=== PATIENT | male | born 1950 | race Caucasian/White ===

== ENCOUNTER 2016-06-12 01:35 | Inpatient (IN) | payer MEDICARE, BC ==
[~2016-06-12] VITALS: Ht 188 cm; Wt 135.9 kg
[2016-06-12] VITALS (22 sets, daily range): BP systolic 90–141; BP diastolic 50–85; PULSE 80–117; RESP 18–28; TEMP 97.6–99.4; O2SAT 93–100
[~2016-06-12 01:35] MED LIST: ALBU6.7H INH; FOLI1TAB4 PO; IPRASOL INH; METR-1 PO; PROT40TA PO; THERTAB15 PO; VANC500I3 PO; VITA100T2 PO; ZOFR4TAB3 SL
[2016-06-12] MEDS ORDERED: PANTOPRAZOLE INJ 80 MG in SODIUM CHLORIDE 0.9% INJ 35 ML IV ONE (01:45)
[2016-06-12] MEDS ORDERED: SODIUM CHLORIDE 0.9% FLUSH 5 ML FLUSH IVF PRN (01:45)
[2016-06-12 02:04] LABS: BASOPHIL # 0.1 TH/MM3 (0-0.2); BASOPHIL % 0.8 % (0.0-2.0); EOSINOPHIL # 0.1 TH/MM3 (0-0.4); EOSINOPHIL % 0.7 % (0.0-4.0); LYMPH % 19.2 % (9.0-44.0); LYMPHOCYTE # 1.6 TH/MM3 (1.0-4.8); MEAN CELL VOLUME 81.1 FL (80.0-100.0); MEAN CORPUSCULAR HEMOGLOBIN 26.1 PG (27.0-34.0); MEAN CORPUSCULAR HGB CONC 32.2 % (32.0-36.0); MONO % 7.5 % (0.0-8.0); NEUT % 71.8 % (16.0-70.0); PLATELET COUNT 250 TH/MM3 (150-450); RED BLOOD COUNT 2.57 MIL/MM3 (4.50-5.90); RED CELL DISTRIBUTION WIDTH 18.5 % (11.6-17.2); WHITE BLOOD COUNT 8.3 TH/MM3 (4.0-11.0)
[2016-06-12 02:05] LABS: HEMO FLAGS AUTO DIFF
[2016-06-12 02:08] LABS: HEMATOCRIT 20.8 % (39.0-51.0)
[2016-06-12] MEDS: PANTOPRAZOLE INJ 80 MG in SODIUM CHLORIDE 0.9% INJ 100 ML IV SCH ×3 (02:13→23:59)
[2016-06-12] MEDS ORDERED: SODIUM CHLOR 0.9% 250 ML INJ 250 ML IV ONE ×2 (02:15→21:30)
[2016-06-12] MEDS ORDERED: cefTRIAXone INJ 1,000 MG in SODIUM CHLORIDE 0.9% INJ 100 ML IV ONE (02:15)
[2016-06-12 02:16] LABS: ANION GAP 10 MEQ/L (5-15); AST (GOT) 48 U/L (15-37); BLOOD UREA NITROGEN 28 MG/DL (7-18); CHLORIDE 107 MEQ/L (98-107); GLOMERULAR FILTRATION RATE 99 ML/MIN (>89); POTASSIUM 3.8 MEQ/L (3.5-5.1); SODIUM (NA) 141 MEQ/L (136-145)
[2016-06-12 02:19] LABS: ALKALINE PHOSPHATASE 77 U/L (45-117); ALT (GPT) 41 U/L (12-78); TOTAL BILIRUBIN ADULT 0.3 MG/DL (0.2-1.0)
[2016-06-12 02:35] LABS: APTT (PATIENT) 19.1 SEC (24.3-30.1); PROTHROMBIN TIME - PATIENT 11.4 SEC (9.8-11.6)
[2016-06-12 02:41] LABS: SCAN/DIFF AUTO DIFF CONFIRMED
--- NOTE | 2016-06-12 04:09 | PD ---
HPI Chief Complaint: Dizziness Time Seen by Provider: 01:44 Travel History International Travel<30 days: No Contact w/Intl Traveler<30days: No Traveled to known affect area: No History of Present Illness HPI The patient is 65 years old. He arrives by EMS. His found him minimally responsive at home. The patient does not recall the events of the evening. Upon arrival to the ER the heart rate was about 115-120 and the blood pressure was about 90/50. The patient answered some questions and is able to state that for the past 2 or 3 days he has been very tired, sleeping nearly all day and all night. Severe dyspnea on exertion is reported. Dyspnea rest is reported as well. Patient reports a history of cirrhosis as well as gastric varices. He has had a peritoneal bleed once previously. 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 He has had no chest pain. No fever has occurred. He has had no vomiting. He reports some constipation lately. Positive flatus reported. The patient quit drinking one month prior. He had been drinking half a liter of liquor daily. PFSH Past Medical History Cancer: Yes (SKIN) Cardiovascular Problems: No COPD: Yes Diabetes: No Glaucoma: No Hepatitis: No Hiatal Hernia: No Hypertension: Yes Medical other: Yes (MUSCLE CRAMPS) Respiratory: Yes (ASBESTOS) Immunizations Current: No Thyroid Disease: No Tetanus Vaccination: < 5 Years Past Surgical History Genitourinary Surgery: Yes (vasectomy) Pacemaker: No Other Surgery: Yes (gastric varacies) Social History Alcohol Use: Yes (quit 1 month ago, previously drank 0.5 liters/day) Tobacco Use: No Substance Use: No Allergies-Medications (Allergen,Severity, Reaction): Coded Allergies: No Known Allergies (Unverified , 06/12/16) Reported Meds & Prescriptions Reported Meds & Active Scripts Active Zofran Odt (Ondansetron Odt) 4 Mg Tab 4 Mg SL Q6HR PRN Flagyl (Metronidazole) 500 Mg Tab 500 Mg PO QID Protonix (Pantoprazole Sodium) 40 Mg Tab 40 Mg PO DAILY Thera/Beta-Carotene (Multiple Vitamin) 1 Tab Tab 1 Tab PO DAILY Folate (Folic Acid) 1 Mg Tab 1 Mg PO DAILY Flagyl (Metronidazole) 500 Mg Tab 500 Mg PO Q8HR Vitamin B-1 (Thiamine HCl) 100 Mg Tab 100 Mg PO DAILY Vancomycin Inj (Vancomycin HCl) 500 Mg Inj 125 Mg PO QID Protonix (Pantoprazole Sodium) 40 Mg Tab 40 Mg PO DAILY Reported Duoneb (Ipratropium-Albuterol Neb) 0.5-2.5 Mg/3 Ml Neb 1 Nebule INH Q6HR NEB Proventil Hfa 6.7 GM Inh (Albuterol Sulfate) 90 Mcg/Act Aer 2 Puff INH Q6H PRN Review of Systems Except as stated in HPI: all other systems reviewed are Neg General / Constitutional: No: Fever, Chills Cardiovascular: Positive: Chest Pain or Discomfort Physical Exam Narrative GENERAL: 65-year-old male pleasant quite pale SKIN: Warm. Quite pale. RECTAL: No internal or external hemorrhoid. Black guaiac positive stool present. No mass appreciable. HEAD: Atraumatic. Normocephalic. EYES: Pupils equal and round. No scleral icterus. No injection or drainage. ENT: No nasal bleeding or discharge. Mucous membranes pink and moist. NECK: Trachea midline. No JVD. CARDIOVASCULAR: Regular rate and rhythm. No murmur appreciated. RESPIRATORY: No accessory muscle use. Clear to auscultation. Breath sounds equal bilaterally. GASTROINTESTINAL: Abdomen soft, non-tender, nondistended. Hepatic and splenic margins not palpable. MUSCULOSKELETAL: No obvious deformities. No clubbing. No cyanosis. No edema. NEUROLOGICAL: Awake and alert. No obvious cranial nerve deficits. Motor grossly within normal limits. Normal speech. PSYCHIATRIC: Appropriate mood and affect; insight and judgment normal. Data Data Last Documented VS Vital Signs Date Time Temp Pulse Resp B/P Pulse Ox O2 Delivery O2 Flow Rate FiO2 06/12/16 03:45 88 18 130/65 100 Room Air 06/12/16 03:22 2 06/12/16 03:09 97.9 Orders Complete Blood Count With Diff (06/12/16 01:45) Comprehensive Metabolic Panel (06/12/16 01:45) Lipase (06/12/16 01:45) Prothrombin Time / Inr (Pt) (06/12/16 01:45) Act Partial Throm Time (Ptt) (06/12/16 01:45) Type And Screen (06/12/16 01:45) Ecg Monitoring (06/12/16 01:45) Iv Access Insert/Monitor (06/12/16 01:45) Oximetry (06/12/16 01:45) Sodium Chloride 0.9% Flush (Ns Flush) (06/12/16 01:45) Pantoprazole Inj (Protonix Inj) (06/12/16 01:45) Pantoprazole Inj (Protonix Inj) (06/12/16 01:45) Lactic Acid (06/12/16 01:48) Ammonia (06/12/16 01:48) Red Blood Cells (Rbc) (06/12/16 02:03) Blood Product Administration .UPON TRANSFUSION (06/12/16 02:03) Sodium Chlor 0.9% 250 Ml Inj (Ns 250 Ml (06/12/16 02:15) Ceftriaxone Inj (Rocephin Inj) (06/12/16 02:15) Labs Laboratory Tests Test 06/12/16 06/12/16 06/12/16 01:50 02:03 02:20 White Blood Count 8.3 TH/MM3 Red Blood Count 2.57 MIL/MM3 Hemoglobin 6.7 GM/DL Hematocrit 20.8 % Mean Corpuscular Volume 81.1 FL Mean Corpuscular Hemoglobin 26.1 PG Mean Corpuscular Hemoglobin 32.2 % Concent Red Cell Distribution Width 18.5 % Platelet Count 250 TH/MM3 Mean Platelet Volume 9.2 FL Neutrophils (%) (Auto) 71.8 % Lymphocytes (%) (Auto) 19.2 % Monocytes (%) (Auto) 7.5 % Eosinophils (%) (Auto) 0.7 % Basophils (%) (Auto) 0.8 % Neutrophils # (Auto) 6.0 TH/MM3 Lymphocytes # (Auto) 1.6 TH/MM3 Monocytes # (Auto) 0.6 TH/MM3 Eosinophils # (Auto) 0.1 TH/MM3 Basophils # (Auto) 0.1 TH/MM3 CBC Comment AUTO DIFF Differential Comment AUTO DIFF CONFIRMED Prothrombin Time 11.4 SEC Prothromb Time International 1.0 RATIO Ratio Activated Partial 19.1 SEC Thromboplast Time Sodium Level 141 MEQ/L Potassium Level 3.8 MEQ/L Chloride Level 107 MEQ/L Carbon Dioxide Level 24.0 MEQ/L Anion Gap 10 MEQ/L Blood Urea Nitrogen 28 MG/DL Creatinine 0.79 MG/DL Estimat Glomerular Filtration 99 ML/MIN Rate Random Glucose 164 MG/DL Lactic Acid Level 3.1 mmol/L Calcium Level 8.3 MG/DL Total Bilirubin 0.3 MG/DL Aspartate Amino Transf 48 U/L (AST/SGOT) Alanine Aminotransferase 41 U/L (ALT/SGPT) Alkaline Phosphatase 77 U/L Ammonia 51 MCMOL/L Total Protein 6.9 GM/DL Albumin 2.5 GM/DL Lipase 254 U/L Blood Type A POSITIVE Antibody Screen NEGATIVE Crossmatch Leukocyte-Reduced Leukocyte-Reduced Red Blood Red Blood Cells Cells Blood Bank Comment MDM Medical Decision Making Medical Screen Exam Complete: Yes Emergency Medical Condition: Yes Medical Record Reviewed: Yes Differential Diagnosis Upper GI bleed, lower GI bleed, anemia Narrative Course CBC & BMP Diagram 06/12/16 01:50 The hemoglobin from 6 weeks prior was 10.6 AST is 48 Ammonia 51 Albumin 2.5 Protonix bolus and drip initiated. Rocephin initiated. 2 units packed cells transfused. At 4:05 AM, about 2 hours into the patient's ER stay the blood pressure improved to 137/65 and the pulse has remained in the mid to high 90s. The patient will be admitted for endoscopy serial CBCs. Discussed with Dr Watkins. Critical Care Narrative Aggregate critical care time was 45 minutes. Time to perform other separately billable procedures was not included in the critical care time. My time did not include minutes spent treating any other patients simultaneously or on activities that did not directly contribute to the patient's treatment. The services I provided to this patient were to treat and/or prevent clinically significant deterioration that could result in: Hemorrhagic shock, cardiopulmonary arrest, septic shock, multiorgan dysfunction I provided critical care services requiring my management, as noted below: Chart data review, documentation time, medication orders and management, vital sign assessments/reviewing monitor data, ordering and reviewing lab tests, ordering and interpreting/reviewing x-rays and diagnostic studies, care of the patient and discussion of the patient with the admitting physicians. Diagnosis Primary Impression: Anemia Qualified Code: D64.9 - Anemia, unspecified type Additional Impressions: GI bleed Qualified Code: K92.1 - Gastrointestinal hemorrhage with melena Fatigue Qualified Code: R53.83 - Fatigue, unspecified type Hyperammonemia Admitting Information Admitting Physician Requests: Miguelito Crawley MD Jun 12, 2016 04:09
[2016-06-12] MEDS ORDERED: ONDANSETRON HCL 4 MG/2 ML VIAL IVP PRN (04:30)
[2016-06-12] MEDS ORDERED: CHLORHEXIDINE GLUCONATE 2 % 1 PACK (2 CLOTHS) TOP PRN (04:30)
[2016-06-12] MEDS ORDERED: MISCELLANEOUS NURSING INFORMATION XX SCH (04:30)
[2016-06-12] MEDS ORDERED: SODIUM CHLORIDE 0.9% FLUSH 5 ML FLUSH FLUSH PRN (04:30)
[2016-06-12] MEDS ORDERED: ACETAMINOPHEN 325 MG TAB PO PRN (04:30)
[2016-06-12] MEDS ORDERED: BISACODYL 10 MG SUPP PR PRN (04:30)
[2016-06-12] MEDS: SODIUM CHLOR 0.9% 1000 ML INJ 1,000 ML IV SCH ×3 (05:15→23:59)
--- NOTE | 2016-06-12 05:39 | HHI.HP ---
[facility] Admission Diagnosis UGIB, Anemia, Hyperammonemia, Hx Gastric Varices Diagnoses: (1) GI bleed Diagnosis: Principal (2) Alcohol abuse Diagnosis: Principal (3) Gastric varices Diagnosis: Principal (4) Anemia Diagnosis: Principal (5) COPD (chronic obstructive pulmonary disease) Diagnosis: Principal Travel History International Travel<30 Days: No Contact w/Intl Traveler <30 Da: No Traveled to Known Affected Are: No History of Present Illness This is a 65-year-old male with a PMH of HTN, CHF (Echo 04/12/16 w/ EF 45%), COPD , Alcohol Abuse, h/o GI Bleed w/ Gastric Varices and Cirrhosis who was brought to the ER by EMS secondary to altered mental status. Pt poor historian, but states he's had episodes of dizziness/lightheadedness and nausea x3 days w/ decreased PO intake. No fever or chills. H/o Alcohol Abuse w/ GI Bleed from Gastric Varices on previous admission 04/11-04/26/16, s/p EGD w/ epi injection, not amenable to endoscopic therapy per GI, recommendation for transfer to tertiary center for TIPS at that time, however per records pt declined. Denies hematemesis. States he quit drinking approx 1 month ago. On arrival, BP 96/51 , HR 108, O2 sat 97% on RA, Temp 99.1. WBC normal. Hgb 6.7, previously 10.6 on 05/01/16. Chemistry essentially unremarkable. Lactic Acid 3.1. INR 1.0. 2u pRBC ordered in ER for transfusion. S/p IVF w/ BP improved to 130/65, HR 88. + Hemoccult positive. Review of Systems Other ROS: 14 point review of systems otherwise negative. Past Family Social History Past Medical History PMH: HTN, COPD, Alcohol Abuse, h/o GI Bleed w/ Gastric Varices and Cirrhosis Past Surgical History PAST SURGICAL HISTORY: Vasectomy Allergies: Coded Allergies: No Known Allergies (Unverified , 06/12/16) Family History PAST FAMILY HISTORY: Reviewed. No h/o DM or CAD Social History PAST SOCIAL HISTORY: H/o Alcohol Abuse, quit 1 month ago. Negative for tobacco or drugs. Physical Exam Vital Signs Vital Signs Date Time Temp Pulse Resp B/P Pulse Ox O2 Delivery O2 Flow Rate FiO2 06/12/16 03:45 88 18 130/65 100 Room Air 06/12/16 03:36 86 18 117/69 99 Room Air 06/12/16 03:22 91 18 118/61 100 Nasal Cannula 2 06/12/16 03:09 97.9 92 18 121/58 98 Nasal Cannula 2 06/12/16 03:07 97.6 94 18 106/65 98 Nasal Cannula 2 06/12/16 02:30 106 20 95/50 100 Nasal Cannula 2 06/12/16 02:24 98.7 102 18 96/51 94 Room Air 06/12/16 02:10 108 18 96/51 97 Room Air 06/12/16 01:41 100 20 96 Room Air 06/12/16 01:37 99.1 114 18 96 Physical Exam PE: GENERAL: Middle-aged male in no acute distress, +pallor HEENT: PERRLA, EOMI. No scleral icterus or conjunctival pallor. No lid lag or facial droop. CARDIOVASCULAR: Regular rate and rhythm. No obvious murmurs to auscultation. No chest tenderness to palpation. RESPIRATORY: No obvious rhonchi or wheezing. Clear to auscultation. Breath sounds equal bilaterally. GASTROINTESTINAL: Abdomen soft, non-tender, nondistended. BS normal. MUSCULOSKELETAL: Extremities without clubbing, cyanosis, or edema. No obvious deformities. NEUROLOGICAL: Awake, alert. No focal neurologic deficits. Moving both upper and lower extremities spontaneously. Laboratory Laboratory Tests Test 06/12/16 06/12/16 06/12/16 01:50 02:03 02:20 White Blood Count 8.3 Red Blood Count 2.57 Hemoglobin 6.7 Hematocrit 20.8 Mean Corpuscular Volume 81.1 Mean Corpuscular Hemoglobin 26.1 Mean Corpuscular Hemoglobin 32.2 Concent Red Cell Distribution Width 18.5 Platelet Count 250 Mean Platelet Volume 9.2 Neutrophils (%) (Auto) 71.8 Lymphocytes (%) (Auto) 19.2 Monocytes (%) (Auto) 7.5 Eosinophils (%) (Auto) 0.7 Basophils (%) (Auto) 0.8 Neutrophils # (Auto) 6.0 Lymphocytes # (Auto) 1.6 Monocytes # (Auto) 0.6 Eosinophils # (Auto) 0.1 Basophils # (Auto) 0.1 CBC Comment AUTO DIFF Differential Comment AUTO DIFF CONFIRMED Prothrombin Time 11.4 Prothromb Time International 1.0 Ratio Activated Partial 19.1 Thromboplast Time Sodium Level 141 Potassium Level 3.8 Chloride Level 107 Carbon Dioxide Level 24.0 Anion Gap 10 Blood Urea Nitrogen 28 Creatinine 0.79 Estimat Glomerular Filtration 99 Rate Random Glucose 164 Lactic Acid Level 3.1 Calcium Level 8.3 Total Bilirubin 0.3 Aspartate Amino Transf 48 (AST/SGOT) Alanine Aminotransferase 41 (ALT/SGPT) Alkaline Phosphatase 77 Ammonia 51 Total Protein 6.9 Albumin 2.5 Lipase 254 Blood Type A POSITIVE Antibody Screen NEGATIVE Crossmatch Leukocyte-Reduced Leukocyte-Reduced Red Blood Red Blood Cells Cells Blood Bank Comment Result Diagram: 06/12/1614906/12/16149 Assessment and Plan Problem List: (1) GI bleed ICD Code: K92.2 Status: Acute (2) Gastric varices ICD Code: I86.4 Status: Acute (3) Anemia ICD Code: D64.9 Status: Acute (4) Alcohol abuse ICD Code: F10.10 Status: Acute (5) COPD (chronic obstructive pulmonary disease) ICD Code: J44.9 Status: Chronic Assessment and Plan A/P: 1. GI Bleed: h/o GI Bleed secondary to Gastric Varices, s/p EGD w/ epi injection 04/2016. Hgb 6.7. +Hemoccult. 2u pRBC ordered in ER, pending transfusion. Check Hgb/Hct q6h. On Protonix gtt. GI Consult. Admit to ICU in light of Variceal Bleed and borderline hypotension, now resolved. 2. Gastric Varices: Cirrhosis secondary to Alcohol Abuse, recommendation for transfer to tertiary center for TIPS on previous admission, however pt declined at that time. Will need re-eval. 3. Alcohol Abuse: h/o heavy alcohol abuse 1/2 L Vodka daily, quit 1 month ago. 4. Anemia: secondary to GI Bleed. Check Hgb/Hct following transfusion. 5. COPD: Chronic Respiratory Failure. Stable. DuoNeb prn. 6. DVT Prophylaxis: Pharmacologic contraindication secondary to GI Bleed. 7. Social work for d/c planning as needed. 8. Case discussed w/ ER physician at length. Physician Certification 2 Midnight Certification Type: Admission for Inpatient Services Order for Inpatient Services The services are ordered in accordance with Medicare regulations or non- Medicare payer requirements, as applicable. In the case of services not specified as inpatient-only, they are appropriately provided as inpatient services in accordance with the 2-midnight benchmark. Estimated LOS (days): 2 days is the estimated time the patient will need to remain in the hospital, assuming treatment plan goals are met and no additional complications. Post-Hospital Plan: Not yet determined Problem Qualifiers (1) GI bleed: Qualified Code: K92.1 - Gastrointestinal hemorrhage with melena (2) Anemia: Qualified Code: D64.9 - Anemia, unspecified type Elke Watkins MD Jun 12, 2016 05:39
[2016-06-12] MEDS: SODIUM CHLORIDE 0.9% FLUSH 5 ML FLUSH FLUSH SCH ×2 (09:00→21:00)
[2016-06-12 09:18] LABS: HEMATOCRIT 23.1 % (39.0-51.0); REVIEW FLAG FINAL
[2016-06-12] MEDS ORDERED: METH40TA PO (09:23)
[2016-06-12] MEDS: metroNIDAZOLE 500 MG INJ 100 ML IV SCH ×2 (09:23→17:14)
[2016-06-12] MEDS: CIPROFLOXACIN 400 MG PREMIX 200 ML IV SCH ×2 (10:42→21:42)
--- NOTE | 2016-06-12 12:00 | HHI.PR ---
Addendum to Inpatient Note Additional Information Patient seen/examined. Currently doing well, hemodynamically stable. We will wait for GI recommendations. Chandler See DO Jun 12, 2016 12:00 pm
--- NOTE | 2016-06-12 12:59 | PD.CONS ---
GI Consult GI Consult See GI consult dictated today also ([id number]) ASSESSMENT/PLAN: 1. GI bleeding (melena)--stable now. Per pt last dark BM was 3-4 days ago 2. Gastric Varices-was on a beta-beryl as an outpt 3. Cirrhosis and portal HTN and portal gastropathy 4. Abnormal CT (? liver lesion) and mildly elevated AFP (6.4). [facility]) 5. Anemia 6. Hx of C. Diff PLAN: 1. Octreotide 2. Transfuse to Hgb of 7-8 (too high may promote more bleeding) 3. consider transfer to a tertiary center for TIPs It was a pleasure seeing Parminder Lucero Thank you for this consult. Entered by: Rob Marsh MD Jun 12, 2016 12:59
[2016-06-12] MEDS ORDERED: OCTREOTIDE INJ 50 MCG/ML AMP IVP STA (13:21)
[2016-06-12] MEDS: OCTREOTIDE INJ 500 MCG in SODIUM CHLORID 0.9% 500 ML INJ 499.5 ML IV SCH (14:32)
[2016-06-12] MEDS ORDERED: CHLORHEXIDINE GLUCONATE 2 % 1 PACK (2 CLOTHS)(extra cloths) TOP PRN (15:00)
[2016-06-12 15:20] LABS: HEMATOCRIT 25.3 % (39.0-51.0); REVIEW FLAG FINAL
[2016-06-12] MEDS: RESP: ALBUTEROL 2.5 MG/IPRATROPIUM 0.5 MG NEB (PRN) NEB (16:29)
--- NOTE | 2016-06-12 17:53 | EKG ---
Date Performed: 06/12/2016 Time Performed: 01:52:15 PTAGE: 65 years EKG: SINUS TACHYCARDIA PROBABLE INFERIOR MYOCARDIAL INFARCTION MODERATE T-WAVE ABNORMALITY, CONS IDER ANTERIOR ISCHEMIA. When compared to previous tracing, the patient appears now Tachycardic, and h as ST depression concerning for ischemia. ABNORMAL ECG PREVIOUS TRACING : 04/18/2016 22.27 DOCTOR: Sabrina Salcedo Interpretating Date/Time 06/12/2016 17:50:55
[2016-06-12 21:11] LABS: REVIEW FLAG FINAL
[2016-06-12 21:14] LABS: HEMATOCRIT 19.9 % (39.0-51.0)
[2016-06-13] VITALS (14 sets, daily range): BP systolic 108–125; BP diastolic 55–67; PULSE 72–126; RESP 14–23; TEMP 98–98.6; O2SAT 95–98
[2016-06-13] MEDS: metroNIDAZOLE 500 MG INJ 100 ML IV SCH ×3 (01:28→16:38)
[2016-06-13] MEDS: CHLORHEXIDINE GLUCONATE 2 % 1 PACK (2 CLOTHS)(taper/protocol) TOP SCH (04:00)
[2016-06-13] MEDS: CHLORHEXIDINE GLUCONATE 2 % 1 PACK (2 CLOTHS) TOP SCH (04:00)
[2016-06-13 06:45] LABS: AUTOMATED NEUTROPHIL # 3.4 TH/MM3 (1.8-7.7); BASOPHIL # 0.1 TH/MM3 (0-0.2); BASOPHIL % 0.9 % (0.0-2.0); EOSINOPHIL # 0.1 TH/MM3 (0-0.4); EOSINOPHIL % 1.8 % (0.0-4.0); LYMPH % 31.9 % (9.0-44.0); MEAN CELL VOLUME 82.3 FL (80.0-100.0); MEAN CORPUSCULAR HEMOGLOBIN 27.4 PG (27.0-34.0); MEAN CORPUSCULAR HGB CONC 33.2 % (32.0-36.0); MONO % 11.5 % (0.0-8.0); NEUT % 53.9 % (16.0-70.0); PLATELET COUNT 166 TH/MM3 (150-450); RED BLOOD COUNT 2.48 MIL/MM3 (4.50-5.90); RED CELL DISTRIBUTION WIDTH 17.4 % (11.6-17.2); WHITE BLOOD COUNT 6.4 TH/MM3 (4.0-11.0)
[2016-06-13 07:05] LABS: ALKALINE PHOSPHATASE 58 U/L (45-117); ALT (GPT) 31 U/L (12-78); ANION GAP 9 MEQ/L (5-15); AST (GOT) 34 U/L (15-37); BICARBONATE 23.2 MEQ/L (21.0-32.0); BLOOD UREA NITROGEN 25 MG/DL (7-18); CHLORIDE 107 MEQ/L (98-107); GLOMERULAR FILTRATION RATE 99 ML/MIN (>89); POTASSIUM 3.7 MEQ/L (3.5-5.1); SODIUM (NA) 139 MEQ/L (136-145); TOTAL BILIRUBIN ADULT 1.1 MG/DL (0.2-1.0)
[2016-06-13 07:17] LABS: HEMO FLAGS DIFF FINAL
[2016-06-13 07:18] LABS: HEMATOCRIT 20.4 % (39.0-51.0)
[2016-06-13] MEDS: OCTREOTIDE INJ 500 MCG in SODIUM CHLORID 0.9% 500 ML INJ 499.5 ML IV SCH (08:26)
[2016-06-13] MEDS: PANTOPRAZOLE INJ 80 MG in SODIUM CHLORIDE 0.9% INJ 100 ML IV SCH ×2 (08:27→16:38)
[2016-06-13] MEDS: CIPROFLOXACIN 400 MG PREMIX 200 ML IV SCH ×2 (08:27→22:31)
[2016-06-13] MEDS: SODIUM CHLORIDE 0.9% FLUSH 5 ML FLUSH FLUSH SCH ×2 (08:27→20:13)
[2016-06-13] MEDS: SODIUM CHLOR 0.9% 1000 ML INJ 1,000 ML IV SCH ×2 (08:32→20:14)
[2016-06-13] MEDS: RESP: ALBUTEROL 2.5 MG/IPRATROPIUM 0.5 MG NEB (PRN) NEB ×2 (08:37→20:18)
[2016-06-13 08:58] LABS: HEMATOCRIT 23.4 % (39.0-51.0); REVIEW FLAG FINAL
--- NOTE | 2016-06-13 09:52 | MB ---
cc: DANDRE PATINO M.D., CAMILLE MD PASRICHA, SUNIL P. M.D. DATE OF CONSULTATION: 06/12/2016 DATE OF : 1950 REASON FOR CONSULTATION I was asked to see the patient at the request of Dr. Watkins for evaluation of GI bleeding and cirrhosis of the liver and gastric varices. HISTORY OF PRESENT ILLNESS The patient is a pleasant 65-year-old white male who I have known from past admission. He was followed by Dr. Patino in the office and the last time he was here he presented with GI bleeding. In the workup for GI bleeding enteroscopy was attempted by my partner Dr. Cabello. During the exam he noticed some blood in the fundus and washed this area and the patient was bleeding from the gastric varices. The varices were not amendable to banding and he did inject the varix with epinephrine and by chance the bleeding did cease, although it may have been the fact that a large clot developed and the clot may have sealed the bleeding. Unfortunately, his gastric varices are not amenable to any kind of treatment in our community. We talked to him about a TIPS procedure, however, our radiologist felt uncomfortable doing him and we had the patient ready to be transferred to a tertiary care center ([facility]) to get a TIPS procedure done. He apparently declined this and wanted another opinion. The patient was seen by Dr. Patino in the office and they talked about TIPS there as well as possible liver transplant. It was also noted alpha fetoprotein was slightly elevated at 6.4 and a CAT scan may have showed some liver lesions and MRI was done at the [facility] and I did scan our records in the office and we do not have those results as of yet. At this time apparently the patient's noticed at home that he was nonresponsive. He was not able to recall events and when he came to the emergency room his hemoglobin was 6.7. The patient states that he has had dark brown/black stools about three or four days ago and that is the last time he had stools and they have been more brown recently. There has been no hematochezia. No nausea, vomiting, dysphagia, early satiety. No fever or chills. He has not been taking any type of aspirin or NSAIDs. He stopped drinking about a month ago he states. PAST MEDICAL HISTORY 1. Cirrhosis of liver. 2. Gastric varices. 3. Portal hypertension. 4. Previous GI bleeding. 5. Anemia. 6. Skin cancer. 7. COPD. 8. Hypertension. 9. Muscle cramps. 10. Possible asbestos exposure. 11. History of C. Difficile. 12. Abnormal CAT scan. 13. Mildly elevated alpha fetoprotein 6.4. PAST SURGICAL HISTORY Includes vasectomy, upper endoscopy and colonoscopy. SOCIAL HISTORY He was drinking almost 1/2 liter of hard liquor a day. He stopped about a month ago (end of March). He does not smoke. ALLERGIES No known drug allergies. MEDICATIONS 1. He is taking Zofran. 2. Protonix. 3. Folic acid. 4. He is also taking a beta-beryl (Naldol)). 5. He was taking Flagyl as well as Vancomycin for C. Difficile but he is off it now. 6. He has also been on lactulose and Xifaxan. MEDICATIONS In the hospital at this time include: 1. Cipro. 2. Flagyl. 3. Albuterol. 4. Zofran. 5. Dulcolax. 6. Tylenol. 7. Morphine. 8. Roxicodone. 9. Pantoprazole. REVIEW OF SYSTEMS No weight loss or fever or chills. CARDIOPULMONARY: There is no palpitation, wheezing, shortness of breath. There might have been some chest pain at one time, according to the ER records but denies it to me. GASTROINTESTINAL: Please see above. He denies any abdominal pain. PHYSICAL EXAMINATION GENERAL: Reveals an overweight white male, resting comfortably at this time, pale, appears to be in no acute GI distress. HEENT: His pupils are equal, round and reactive to light. There is no scleral icterus. Oropharynx clear, has dental caries. No tongue deviation or candidal lesion. Hearing was intact. NECK: The neck is supple. No thyromegaly or lymphadenopathy. LUNGS: Clear to auscultation and percussion. HEART: Regular rate and rhythm. No gross murmurs are heard. ABDOMEN: Protuberant. There is no organomegaly. No ascites or hernias. Bowel sounds x4 quadrants. Nontender. NEUROLOGIC: He is alert and oriented x 3. No gross neurologic deficits. There is no asterixis. SKIN: Skin warm and moist. DATABASE Labs reveal an admission hemoglobin was 6.7, hematocrit of 20.8, MCV 81.1, white blood cell count 8300, platelet count of 250,000. With blood hemoglobin is now 7.7. Prothrombin time 1.4, INR 1.0, PTT 19.1. Chemistry revealed a lactic acid initially elevated at 3.1, now it is 1.1, ammonia 51 elevated, lipase 254 is normal, albumin low 2.5, total protein 6.9 was normal. Potassium 3.6, BUN 28 elevated, creatinine 0.79, sodium 164, total bilirubin 0.3, SGOT of 48, SGPT 41, alkaline phosphatase 77. Sodium 141. IMPRESSION 1. GI bleeding (melena). He is stable now. Per the patient last dark bowel movement was about 3-4 days ago. He understands the bleeding more than likely came from portal hypertension/gastric varices. He has been on PPI so I think ulcer is lower in differential. He has not been taking aspirin or NSAIDs. 2. Gastric varices - the patient was on beta beryl as an outpatient. The fact that he came in with GI bleeding it means the beta-beryl did not help. 3. Cirrhosis of the liver as well as portal hypertension and portal gastropathy (the cirrhosis seen on CAT scan and reportedly gastropathy seen on previous upper endoscopy). 4. Abnormal CT scan (there is a possible liver lesion) and mildly elevated alpha fetoprotein (6.4). The patient had a MRI of the abdomen done at the [facility]. We do not have the results at this time. 5. Anemia - 6. History of C. Difficile. The patient was treated with Flagyl, Vancomycin and stools are formed at this time. RECOMMENDATIONS 1. We talked about an upper endoscopy, however, this is a low yield exam and he does have gastric varices and they are not amenable to endoscopic treatment in our community. Tertiary care centers may have ability to use special form of epoxy which can be injected into the varix and stop the bleeding. Unfortunately, we do not have it in our community. Banding is a possibility but they are not amenable to banding due to location and a band does not usually help gastric varices. Since we do not access these modalities for TIPS, please start the patient on octreotide to reduce portal pressures to prevent another GI bleed, until we decide appropriate treatment plan - see below. 2. Transfuse patient if hemoglobin between 7 and 8, please do not get the hemoglobin too high as this may increase portal pressures and promote rebleeding. 3. Consider transfer to tertiary center for TIPS procedure. This is not available at our institution, at least for this patient. 4. Further recommendations depending on how he does. MD ALEJANDRA Watkins/[place] /1:02 PM /9:39 AM MTDParth
--- NOTE | 2016-06-13 10:26 | HHI.GIFU ---
GI Follow-up Note Consult Follow-up Subjective: Patient laying in bed comfortably. Had black stools again. No N/V/ Abd pain Objective: PHYSICAL EXAMINATION: [id number] No fever HEENT: no jaundice. Throat is clear. NECK: Neck is supple, no JVD, no lymphadenopathy. CHEST: Chest is clear to auscultation and percussion. CARDIAC: Regular rate and rhythm with no murmur gallop or rubs. ABDOMEN: Soft, nondistended, nontender; no hepatosplenomegaly; bowel sounds are present in all four quadrants. [employer]ADDLE [employer]: alert and oriented times three. Available Data (labs, X- Rays, Procedues) : Hgb--7.0-6.8-7.9 ASSESSMENT/PLAN: 1. GI bleeding (melena)--had some melena again but hgb stable at 7.9 2. Gastric Varices-was on a beta-beryl as an outpt 3. Cirrhosis and portal HTN and portal gastropathy 4. Abnormal CT (? liver lesion) and mildly elevated AFP (6.4). [facility]) 5. Anemia 6. Hx of C. Diff PLAN: 1. Cont Octreotide drip 2. Transfuse to Hgb of 7-8 (too high may promote more bleeding) 3. consider transfer to a tertiary center for TIPs It was a pleasure seeing Parminder Lucero Thank you for this consult. Entered by: Rob Marsh MD Jun 13, 2016 10:26
--- NOTE | 2016-06-13 16:13 | HHI.PR ---
Subjective Remarks Follow-up for GI bleed due to gastric varices. Mr. Lucero is currently doing well. Denies any chest pain, shortness of breath, fever or chills. He had 3 bowel movements today that were melanotic. He is waiting to be transferred to [facility] for possible TIPS procedure. Objective Vitals Vital Signs Date Time Temp Pulse Resp B/P Pulse Ox O2 Delivery O2 Flow Rate FiO2 06/13/16 14:00 84 06/13/16 12:00 81 06/13/16 12:00 98.2 82 20 125/63 97 06/13/16 10:00 99 06/13/16 08:17 98 Nasal Cannula 2.00 06/13/16 08:00 98.0 97 20 108/55 98 06/13/16 08:00 100 06/13/16 06:00 93 06/13/16 04:00 99 06/13/16 04:00 98.3 99 23 109/59 96 06/13/16 02:00 95 06/13/16 00:45 98.6 85 18 109/58 95 06/13/16 00:00 85 06/13/16 00:00 98.3 85 14 115/64 98 06/12/16 22:00 102 06/12/16 20:07 97 Nasal Cannula 2.00 06/12/16 20:00 100 06/12/16 20:00 99.3 102 28 114/74 97 06/12/16 18:00 101 I/O 06/12/16 06/12/16 06/12/16 06/13/16 06/13/16 06/13/16 07:00 15:00 23:00 07:00 15:00 23:00 Intake Total 250 ml 2440 ml 1211 ml 2075 ml Output Total 120 ml 400 ml 1000 ml Balance 250 ml 2320 ml 811 ml 1075 ml Intake Oral 960 ml IV Total 2440 ml 911 ml 1115 ml Packed Cells 250 ml 300 ml Output Urine Total 120 ml 400 ml 1000 ml # Voids 1 # Bowel Movements 1 3 Result Diagram: 06/13/16 0830 06/13/16 0508 Objective Remarks GENERAL: Alert, oriented 3 SKIN: Warm and dry. HEAD: Normocephalic. EYES: No scleral icterus. No injection or drainage. NECK: Supple, trachea midline. No JVD or lymphadenopathy. CARDIOVASCULAR: Regular rate and rhythm without murmurs, gallops, or rubs. RESPIRATORY: Breath sounds equal bilaterally. No accessory muscle use. GASTROINTESTINAL: Abdomen soft, non-tender, nondistended. MUSCULOSKELETAL: No cyanosis, or edema. BACK: Nontender without obvious deformity. No CVA tenderness. Procedures None A/P Problem List: (1) GI bleed ICD Code: K92.2 Status: Acute (2) Gastric varices ICD Code: I86.4 Status: Acute (3) Anemia ICD Code: D64.9 Status: Acute (4) Alcohol abuse ICD Code: F10.10 Status: Acute (5) COPD (chronic obstructive pulmonary disease) ICD Code: J44.9 Status: Chronic Assessment and Plan Mr. Lucero is a 65-year-old male with a PMH of HTN, CHF (Echo 04/12/16 w/ EF 45%) , COPD, Alcohol Abuse, h/o GI Bleed w/ Gastric Varices and Cirrhosis who was brought to the ER by EMS secondary to altered mental status on 06/12/2016. Patient complained of dizziness and lightheadedness as well as nausea for 3 days prior to this admission. In his recent admission in April 2016 patient underwent EGD with epinephrine injection not amenable to endoscopic therapy per GI. Patient was recommended to go to a tertiary care center for TIPS procedure but patient refused at that time. On arrival, BP 96/51, HR 108, O2 sat 97% on RA , Temp 99.1. WBC normal. Hgb 6.7, previously 10.6 on 05/01/16. Lactic Acid 3.1. INR 1.0. 2 units of PRBCs ordered in ER for transfusion. S/p IVF w/ BP improved to 130/65, HR 88. + Hemoccult positive. - Acute anemia due to upper GI bleed - Gastric varices - History of GI bleed secondary to gastroparesis. Suspect upper GI bleed again this admission. - Received 3 units of PRBCs so far. - Continue Protonix drip, octreotide, ciprofloxacin and Flagyl. - GI is following this patient. Per GI recommendation we initiated transfer to [facility]. - Alcohol abuse. History of heavy alcohol use about half a liter of workup daily. Patient quit drinking about a month ago. - COPD - currently stable. Continue DuoNeb when necessary Full code. SCDs. Problem Qualifiers (1) GI bleed: Qualified Code: K92.1 - Gastrointestinal hemorrhage with melena (2) Anemia: Qualified Code: D64.9 - Anemia, unspecified type Chandler See DO Jun 13, 2016 4:13 pm
--- NOTE | 2016-06-13 17:35 | HHI.DS ---
Discharge Summary Admission Date Jun 12, 2016 at 4:16 am Discharge Date: Jun 13, 2016 Admitting Diagnosis UGIB, Anemia, Hyperammonemia, Hx Gastric Varices (1) GI bleed ICD Code: K92.2 Diagnosis: Principal (2) Gastric varices ICD Code: I86.4 Diagnosis: Principal (3) Anemia ICD Code: D64.9 (4) Alcohol abuse ICD Code: F10.10 (5) COPD (chronic obstructive pulmonary disease) ICD Code: J44.9 Procedures None Brief History - From Admission This is a 65-year-old male with a PMH of HTN, CHF (Echo 04/12/16 w/ EF 45%), COPD , Alcohol Abuse, h/o GI Bleed w/ Gastric Varices and Cirrhosis who was brought to the ER by EMS secondary to altered mental status. Pt poor historian, but states he's had episodes of dizziness/lightheadedness and nausea x3 days w/ decreased PO intake. No fever or chills. H/o Alcohol Abuse w/ GI Bleed from Gastric Varices on previous admission 04/11-04/26/16, s/p EGD w/ epi injection, not amenable to endoscopic therapy per GI, recommendation for transfer to tertiary center for TIPS at that time, however per records pt declined. Denies hematemesis. States he quit drinking approx 1 month ago. On arrival, BP 96/51 , HR 108, O2 sat 97% on RA, Temp 99.1. WBC normal. Hgb 6.7, previously 10.6 on 05/01/16. Chemistry essentially unremarkable. Lactic Acid 3.1. INR 1.0. 2u pRBC ordered in ER for transfusion. S/p IVF w/ BP improved to 130/65, HR 88. + Hemoccult positive. CBC/BMP: 06/13/16 0830 06/13/16 0508 Significant Findings Laboratory Tests Test 06/12/16 06/12/16 06/12/16 06/12/16 01:50 09:05 15:08 20:16 Red Blood Count 2.57 MIL/MM3 (4.50-5.90) Hemoglobin 6.7 GM/DL 7.7 GM/DL 8.4 GM/DL 7.0 GM/DL (13.0-17.0) (13.0-17.0) (13.0-17.0) (13.0-17.0) Hematocrit 20.8 % 23.1 % 25.3 % 19.9 % (39.0-51.0) (39.0-51.0) (39.0-51.0) (39.0-51.0) Mean Corpuscular Hemoglobin 26.1 PG (27.0-34.0) Red Cell Distribution Width 18.5 % (11.6-17.2) Neutrophils (%) (Auto) 71.8 % (16.0-70.0) Activated Partial 19.1 SEC Thromboplast Time (24.3-30.1) Blood Urea Nitrogen 28 MG/DL (7-18) Random Glucose 164 MG/DL (74-106) Lactic Acid Level 3.1 mmol/L (0.4-2.0) Calcium Level 8.3 MG/DL (8.5-10.1) Aspartate Amino Transf 48 U/L (15-37) (AST/SGOT) Ammonia 51 MCMOL/L (11-32) Albumin 2.5 GM/DL (3.4-5.0) Test 06/13/16 06/13/16 05:08 08:30 Red Blood Count 2.48 MIL/MM3 (4.50-5.90) Hemoglobin 6.8 GM/DL 7.9 GM/DL (13.0-17.0) (13.0-17.0) Hematocrit 20.4 % 23.4 % (39.0-51.0) (39.0-51.0) Red Cell Distribution Width 17.4 % (11.6-17.2) Monocytes (%) (Auto) 11.5 % (0.0-8.0) Blood Urea Nitrogen 25 MG/DL (7-18) Random Glucose 130 MG/DL (74-106) Calcium Level 7.5 MG/DL (8.5-10.1) Total Bilirubin 1.1 MG/DL (0.2-1.0) Total Protein 5.4 GM/DL (6.4-8.2) Albumin 2.1 GM/DL (3.4-5.0) PE at Discharge GENERAL: Alert, oriented 3 SKIN: Warm and dry. HEAD: Normocephalic. EYES: No scleral icterus. No injection or drainage. NECK: Supple, trachea midline. No JVD or lymphadenopathy. CARDIOVASCULAR: Regular rate and rhythm without murmurs, gallops, or rubs. RESPIRATORY: Breath sounds equal bilaterally. No accessory muscle use. GASTROINTESTINAL: Abdomen soft, non-tender, nondistended. MUSCULOSKELETAL: No cyanosis, or edema. BACK: Nontender without obvious deformity. No CVA tenderness. Pt update on day of discharge Patient is doing well. Hemodynamically stable. Required 3 units of PRBCs since admission on 06/12/2016. Currently on Protonix drip, Octreotide, Cipro and Flagyl. Discharge to [facility] pending bed availability. Hospital Course Mr. Lucero is a 65-year-old male with a PMH of HTN, CHF (Echo 04/12/16 w/ EF 45%) , COPD, Alcohol Abuse, h/o GI Bleed w/ Gastric Varices and Cirrhosis who was brought to the ER by EMS secondary to altered mental status on 06/12/2016. Patient complained of dizziness and lightheadedness as well as nausea for 3 days prior to this admission. In his recent admission in April 2016 patient underwent EGD with epinephrine injection not amenable to endoscopic therapy per GI. Patient was recommended to go to a tertiary care center for TIPS procedure but patient refused at that time. On arrival, BP 96/51, HR 108, O2 sat 97% on RA , Temp 99.1. WBC normal. Hgb 6.7, previously 10.6 on 05/01/16. Lactic Acid 3.1. INR 1.0. 2 units of PRBCs ordered in ER for transfusion. S/p IVF w/ BP improved to 130/65, HR 88. + Hemoccult positive. - Acute anemia due to upper GI bleed - Gastric varices - History of GI bleed secondary to gastroparesis. Suspect upper GI bleed again this admission. - Received 3 units of PRBCs so far. - Continue Protonix drip, octreotide, ciprofloxacin and Flagyl. - GI is following this patient. Per GI recommendation we initiated transfer to [facility]. - Alcohol abuse. History of heavy alcohol use about half a liter of workup daily. Patient quit drinking about a month ago. - COPD - currently stable. Continue DuoNeb when necessary Full code. SCDs. Current Medications Pantoprazole Sodium 80 mg/ Sodium Chloride 100 ml @ 10 mls/hr Q10H IV Last administered on 06/13/16 08:27; Start 06/12/16 at 01:45 Ondansetron HCl (Zofran Inj) 4 mg Q6H PRN IVP NAUSEA OR VOMITING; Start at 04:30 Bisacodyl (Dulcolax Supp) 10 mg DAILY PRN [place] CONSTIPATION; Start 06/12/16 at 04: 30 Acetaminophen (Tylenol) 650 mg Q6H PRN PO FEVER/PAIN SCALE 1 TO 2; Start at 04:30 Morphine Sulfate (Morphine Inj) 2 mg Q3H PRN IV Pain 6-10; Start 06/12/16 at 04: 30 Oxycodone HCl 5 mg 5 mg Q4H PRN PO PAIN SCALE 3 TO 5; Start 06/12/16 at 04:30 Ciprofloxacin/ Dextrose 200 ml @ 200 mls/hr Q12H IV Last administered on 08:27; Start 06/12/16 at 09:00 Metronidazole (Flagyl 500 Mg Inj) 100 ml @ 100 mls/hr Q8H IV Last administered on 06/13/16 16:38; Start 06/12/16 at 09:00 Albuterol/ Ipratropium (Duoneb Neb) 1 ampule Q4HR NEB PRN NEB SOB/WHEEZING Last administered on 06/13/16 08:37; Start 06/12/16 at 05:00 Octreotide Acetate 50 mcg 50 mcg ONCE STAT IVP ; Start 06/12/16 at 13:21; Stop 06/12/16 at 13:22; Status DC Octreotide Acetate/Sodium Chloride (SandoSTATIN INJ/ NS 500 ml Inj) 500.0 ml @ 25 mls/hr Q20H IV Last administered on 06/13/16 08:26; Start 06/12/16 at 14:00; Stop 06/17/16 at 13:59 Pt Condition on Discharge: Good Discharge Disposition: Disch to Another Hospital Discharge Time: > 30 minutes Discharge Instructions DIET: Follow Instructions for: Clear Liquid Diet Activities you can perform: Regular-No Restrictions Chandler See DO Jun 13, 2016 5:35 pm
[2016-06-13] MEDS: MORPHINE SULFATE 4 MG/ML INJ IV PRN ×2 (20:10→23:14)
[2016-06-14] VITALS (13 sets, daily range): BP systolic 103–138; BP diastolic 59–78; PULSE 86–117; RESP 15–27; TEMP 98–98.9; O2SAT 95–99
[2016-06-14] MEDS: metroNIDAZOLE 500 MG INJ 100 ML IV SCH ×2 (01:41→19:00)
[2016-06-14] MEDS: CHLORHEXIDINE GLUCONATE 2 % 1 PACK (2 CLOTHS) TOP SCH (04:00)
[2016-06-14] MEDS: PANTOPRAZOLE INJ 80 MG in SODIUM CHLORIDE 0.9% INJ 100 ML IV SCH ×2 (04:40→19:00)
[2016-06-14] MEDS: OCTREOTIDE INJ 500 MCG in SODIUM CHLORID 0.9% 500 ML INJ 499.5 ML IV SCH (05:04)
[2016-06-14] MEDS: RESP: ALBUTEROL 2.5 MG/IPRATROPIUM 0.5 MG NEB (PRN) NEB ×2 (08:56→20:17)
--- NOTE | 2016-06-14 09:11 | HHI.GIFU ---
Subjective Remarks Alert Receiving breathing treatment NAD No active Bleeding wants diet advanced Objective Vitals I&O Vital Signs Date Time Temp Pulse Resp B/P Pulse Ox O2 Delivery O2 Flow Rate FiO2 06/14/16 08:05 96 Nasal Cannula 1.50 06/14/16 08:00 90 06/14/16 08:00 98.4 88 20 113/59 98 06/14/16 06:00 90 06/14/16 04:00 98.0 97 15 103/65 95 06/14/16 04:00 97 06/14/16 02:00 104 06/14/16 00:00 117 06/14/16 00:00 98.2 117 24 110/69 95 06/13/16 22:00 126 06/13/16 20:00 98.4 88 20 120/67 98 06/13/16 20:00 88 06/13/16 18:00 107 06/13/16 16:00 72 06/13/16 16:00 98.0 86 20 124/64 98 06/13/16 14:00 84 06/13/16 12:00 81 06/13/16 12:00 98.2 82 20 125/63 97 06/13/16 10:00 99 I/O 06/13/16 06/13/16 06/13/16 06/14/16 06/14/16 06/14/16 07:00 15:00 23:00 07:00 15:00 23:00 Intake Total 1211 ml 2075 ml 1926 ml 1585 ml Output Total 400 ml 1000 ml 400 ml 450 ml Balance 811 ml 1075 ml 1526 ml 1135 ml Intake Oral 960 ml 400 ml 200 ml IV Total 911 ml 1115 ml 1526 ml 1385 ml Packed Cells 300 ml Output Urine Total 400 ml 1000 ml 400 ml 450 ml # Bowel Movements 3 Laboratory Laboratory Tests Test 06/12/16 06/12/16 06/12/16 06/12/16 01:50 02:20 09:05 14:50 Prothrombin Time 11.4 SEC Prothromb Time International 1.0 RATIO Ratio Activated Partial 19.1 SEC Thromboplast Time Ammonia 51 MCMOL/L Lipase 254 U/L Blood Type A POSITIVE Antibody Screen NEGATIVE Crossmatch Leukocyte-Reduced Red Blood Cells Blood Bank Comment Lactic Acid Level 1.1 mmol/L Nasal Screen MRSA (PCR) NEGATIVE Test 06/13/16 06/13/16 05:08 08:30 White Blood Count 6.4 TH/MM3 Red Blood Count 2.48 MIL/MM3 Mean Corpuscular Volume 82.3 FL Mean Corpuscular Hemoglobin 27.4 PG Mean Corpuscular Hemoglobin 33.2 % Concent Red Cell Distribution Width 17.4 % Platelet Count 166 TH/MM3 Mean Platelet Volume 9.1 FL Neutrophils (%) (Auto) 53.9 % Lymphocytes (%) (Auto) 31.9 % Monocytes (%) (Auto) 11.5 % Eosinophils (%) (Auto) 1.8 % Basophils (%) (Auto) 0.9 % Neutrophils # (Auto) 3.4 TH/MM3 Lymphocytes # (Auto) 2.0 TH/MM3 Monocytes # (Auto) 0.7 TH/MM3 Eosinophils # (Auto) 0.1 TH/MM3 Basophils # (Auto) 0.1 TH/MM3 CBC Comment DIFF FINAL Differential Comment Sodium Level 139 MEQ/L Potassium Level 3.7 MEQ/L Chloride Level 107 MEQ/L Carbon Dioxide Level 23.2 MEQ/L Anion Gap 9 MEQ/L Blood Urea Nitrogen 25 MG/DL Creatinine 0.79 MG/DL Estimat Glomerular Filtration 99 ML/MIN Rate Random Glucose 130 MG/DL Calcium Level 7.5 MG/DL Total Bilirubin 1.1 MG/DL Aspartate Amino Transf 34 U/L (AST/SGOT) Alanine Aminotransferase 31 U/L (ALT/SGPT) Alkaline Phosphatase 58 U/L Total Protein 5.4 GM/DL Albumin 2.1 GM/DL Hemoglobin 7.9 GM/DL Hematocrit 23.4 % Imaging Laboratory Tests Test 06/12/16 06/12/16 06/12/16 06/12/16 01:50 02:20 09:05 14:50 Prothrombin Time 11.4 SEC Prothromb Time International 1.0 RATIO Ratio Activated Partial 19.1 SEC Thromboplast Time Ammonia 51 MCMOL/L Lipase 254 U/L Blood Type A POSITIVE Antibody Screen NEGATIVE Crossmatch Leukocyte-Reduced Red Blood Cells Blood Bank Comment Lactic Acid Level 1.1 mmol/L Nasal Screen MRSA (PCR) NEGATIVE Test 06/13/16 06/13/16 05:08 08:30 White Blood Count 6.4 TH/MM3 Red Blood Count 2.48 MIL/MM3 Mean Corpuscular Volume 82.3 FL Mean Corpuscular Hemoglobin 27.4 PG Mean Corpuscular Hemoglobin 33.2 % Concent Red Cell Distribution Width 17.4 % Platelet Count 166 TH/MM3 Mean Platelet Volume 9.1 FL Neutrophils (%) (Auto) 53.9 % Lymphocytes (%) (Auto) 31.9 % Monocytes (%) (Auto) 11.5 % Eosinophils (%) (Auto) 1.8 % Basophils (%) (Auto) 0.9 % Neutrophils # (Auto) 3.4 TH/MM3 Lymphocytes # (Auto) 2.0 TH/MM3 Monocytes # (Auto) 0.7 TH/MM3 Eosinophils # (Auto) 0.1 TH/MM3 Basophils # (Auto) 0.1 TH/MM3 CBC Comment DIFF FINAL Differential Comment Sodium Level 139 MEQ/L Potassium Level 3.7 MEQ/L Chloride Level 107 MEQ/L Carbon Dioxide Level 23.2 MEQ/L Anion Gap 9 MEQ/L Blood Urea Nitrogen 25 MG/DL Creatinine 0.79 MG/DL Estimat Glomerular Filtration 99 ML/MIN Rate Random Glucose 130 MG/DL Calcium Level 7.5 MG/DL Total Bilirubin 1.1 MG/DL Aspartate Amino Transf 34 U/L (AST/SGOT) Alanine Aminotransferase 31 U/L (ALT/SGPT) Alkaline Phosphatase 58 U/L Total Protein 5.4 GM/DL Albumin 2.1 GM/DL Hemoglobin 7.9 GM/DL Hematocrit 23.4 % Laboratory Tests Test 06/12/16 06/12/16 06/12/16 06/12/16 01:50 02:20 09:05 14:50 Prothrombin Time 11.4 SEC Prothromb Time International 1.0 RATIO Ratio Activated Partial 19.1 SEC Thromboplast Time Ammonia 51 MCMOL/L Lipase 254 U/L Blood Type A POSITIVE Antibody Screen NEGATIVE Crossmatch Leukocyte-Reduced Red Blood Cells Blood Bank Comment Lactic Acid Level 1.1 mmol/L Nasal Screen MRSA (PCR) NEGATIVE Test 06/13/16 06/13/16 05:08 08:30 White Blood Count 6.4 TH/MM3 Red Blood Count 2.48 MIL/MM3 Mean Corpuscular Volume 82.3 FL Mean Corpuscular Hemoglobin 27.4 PG Mean Corpuscular Hemoglobin 33.2 % Concent Red Cell Distribution Width 17.4 % Platelet Count 166 TH/MM3 Mean Platelet Volume 9.1 FL Neutrophils (%) (Auto) 53.9 % Lymphocytes (%) (Auto) 31.9 % Monocytes (%) (Auto) 11.5 % Eosinophils (%) (Auto) 1.8 % Basophils (%) (Auto) 0.9 % Neutrophils # (Auto) 3.4 TH/MM3 Lymphocytes # (Auto) 2.0 TH/MM3 Monocytes # (Auto) 0.7 TH/MM3 Eosinophils # (Auto) 0.1 TH/MM3 Basophils # (Auto) 0.1 TH/MM3 CBC Comment DIFF FINAL Differential Comment Sodium Level 139 MEQ/L Potassium Level 3.7 MEQ/L Chloride Level 107 MEQ/L Carbon Dioxide Level 23.2 MEQ/L Anion Gap 9 MEQ/L Blood Urea Nitrogen 25 MG/DL Creatinine 0.79 MG/DL Estimat Glomerular Filtration 99 ML/MIN Rate Random Glucose 130 MG/DL Calcium Level 7.5 MG/DL Total Bilirubin 1.1 MG/DL Aspartate Amino Transf 34 U/L (AST/SGOT) Alanine Aminotransferase 31 U/L (ALT/SGPT) Alkaline Phosphatase 58 U/L Total Protein 5.4 GM/DL Albumin 2.1 GM/DL Hemoglobin 7.9 GM/DL Hematocrit 23.4 % Physical Exam HEENT: Pupils round and reactive to light; normocephalic; atraumatic; no jaundice. Throat is clear. NECK: Neck is supple, no JVD, no lymphadenopathy. CHEST Mild wheezing noted. CARDIAC: Regular rate and rhythm with no murmur gallop or rubs. ABDOMEN: Soft, obese , nontender; neg rebound ; bowel sounds are present in all four quadrants. EXTREMITIES: 1+ pedal edema. SKIN: no rash; no jaundice. Assessment and Plan Assessment: (1) Hepatic cirrhosis (2) Gastric varices (3) GI bleed (4) Anemia Plan Continue present therap w Octreotide Infusion Follow H/H Agree with [facility]fer to [facility] for TIPS procedure due to Gastric varicies....discussed all with pt and he agrees Problem Qualifiers (1) Hepatic cirrhosis: (2) Anemia: Jose Gabriel MD Jun 14, 2016 09:11
--- NOTE | 2016-06-14 18:37 | HHI.PR ---
Subjective Remarks Follow-up for GI bleed due to gastric varices. Mr. Lucero is currently doing well. He is still having loose bowel movement. Denies any chest pain, shortness of breath, fever or chills. Waiting for bed availability at [facility]. Objective Vitals Vital Signs Date Time Temp Pulse Resp B/P Pulse Ox O2 Delivery O2 Flow Rate FiO2 06/14/16 16:00 98.7 86 18 138/78 97 06/14/16 16:00 90 06/14/16 14:00 90 06/14/16 12:00 90 06/14/16 08:05 96 Nasal Cannula 1.50 06/14/16 08:00 90 06/14/16 08:00 98.4 88 20 113/59 98 06/14/16 06:00 90 06/14/16 04:00 98.0 97 15 103/65 95 06/14/16 04:00 97 06/14/16 02:00 104 06/14/16 00:00 117 06/14/16 00:00 98.2 117 24 110/69 95 06/13/16 22:00 126 06/13/16 20:00 98.4 88 20 120/67 98 06/13/16 20:00 88 I/O 06/13/16 06/13/16 06/13/16 06/14/16 06/14/16 06/14/16 07:00 15:00 23:00 07:00 15:00 23:00 Intake Total 1211 ml 2075 ml 1926 ml 1585 ml 1665 ml Output Total 400 ml 1000 ml 400 ml 450 ml 650 ml Balance 811 ml 1075 ml 1526 ml 1135 ml 1015 ml Intake Oral 960 ml 400 ml 200 ml 380 ml IV Total 911 ml 1115 ml 1526 ml 1385 ml 1285 ml Packed Cells 300 ml Output Urine Total 400 ml 1000 ml 400 ml 450 ml 650 ml # Bowel Movements 3 1 Result Diagram: 06/13/16 0830 06/13/16 0508 Objective Remarks GENERAL: Alert, oriented 3 SKIN: Warm and dry. HEAD: Normocephalic. EYES: No scleral icterus. No injection or drainage. NECK: Supple, trachea midline. No JVD or lymphadenopathy. CARDIOVASCULAR: Regular rate and rhythm without murmurs, gallops, or rubs. RESPIRATORY: Breath sounds equal bilaterally. No accessory muscle use. GASTROINTESTINAL: Abdomen soft, non-tender, nondistended. MUSCULOSKELETAL: No cyanosis, or edema. BACK: Nontender without obvious deformity. No CVA tenderness. Procedures None A/P Problem List: (1) GI bleed ICD Code: K92.2 Status: Acute (2) Gastric varices ICD Code: I86.4 Status: Acute (3) Anemia ICD Code: D64.9 Status: Acute (4) Alcohol abuse ICD Code: F10.10 Status: Acute (5) COPD (chronic obstructive pulmonary disease) ICD Code: J44.9 Status: Chronic Assessment and Plan Mr. Lucero is a 65-year-old male with a PMH of HTN, CHF (Echo 04/12/16 w/ EF 45%) , COPD, Alcohol Abuse, h/o GI Bleed w/ Gastric Varices and Cirrhosis who was brought to the ER by EMS secondary to altered mental status on 06/12/2016. Patient complained of dizziness and lightheadedness as well as nausea for 3 days prior to this admission. In his recent admission in April 2016 patient underwent EGD with epinephrine injection not amenable to endoscopic therapy per GI. Patient was recommended to go to a tertiary care center for TIPS procedure but patient refused at that time. On arrival, BP 96/51, HR 108, O2 sat 97% on RA , Temp 99.1. WBC normal. Hgb 6.7, previously 10.6 on 05/01/16. Lactic Acid 3.1. INR 1.0. 2 units of PRBCs ordered in ER for transfusion. S/p IVF w/ BP improved to 130/65, HR 88. + Hemoccult positive. - Acute anemia due to upper GI bleed - Gastric varices - History of GI bleed secondary to gastroparesis. Suspect upper GI bleed again this admission. - Received 3 units of PRBCs so far. Hemoglobin 7.9 on 06/13/2016. - Continue Protonix drip, octreotide, ciprofloxacin and Flagyl. - GI is following this patient. Per GI recommendation we initiated transfer to [facility]. Waiting for a bed. - Alcohol abuse. History of heavy alcohol use about half a liter of workup daily. Patient quit drinking about a month ago. - COPD - currently stable. Continue DuoNeb when necessary Full code. SCDs. Problem Qualifiers (1) Anemia: Chandler See 4, 2017 6:36 pm
[2016-06-14] MEDS: SODIUM CHLOR 0.9% 1000 ML INJ 1,000 ML IV SCH (19:00)
[2016-06-14] MEDS: SODIUM CHLORIDE 0.9% FLUSH 5 ML FLUSH FLUSH SCH ×2 (19:00→21:13)
[2016-06-14] MEDS: CIPROFLOXACIN 400 MG PREMIX 200 ML IV SCH ×2 (19:00→21:11)
[2016-06-14] MEDS: MORPHINE SULFATE 4 MG/ML INJ IV PRN (20:56)
[2016-06-15] VITALS (11 sets, daily range): BP systolic 86–117; BP diastolic 54–69; PULSE 78–99; RESP 14–29; TEMP 97–98.7; O2SAT 94–100
[2016-06-15] MEDS: metroNIDAZOLE 500 MG INJ 100 ML IV SCH ×3 (00:56→16:14)
[2016-06-15] MEDS: PANTOPRAZOLE INJ 80 MG in SODIUM CHLORIDE 0.9% INJ 100 ML IV SCH ×2 (00:56→13:44)
[2016-06-15] MEDS: MORPHINE SULFATE 4 MG/ML INJ IV PRN ×2 (02:32→16:14)
[2016-06-15] MEDS: CHLORHEXIDINE GLUCONATE 2 % 1 PACK (2 CLOTHS)(taper/protocol) TOP SCH (06:34)
[2016-06-15] MEDS: CHLORHEXIDINE GLUCONATE 2 % 1 PACK (2 CLOTHS) TOP SCH (06:35)
[2016-06-15] MEDS: OCTREOTIDE INJ 500 MCG in SODIUM CHLORID 0.9% 500 ML INJ 499.5 ML IV SCH (06:37)
[2016-06-15] MEDS: SODIUM CHLOR 0.9% 1000 ML INJ 1,000 ML IV SCH ×2 (06:38→13:45)
[2016-06-15] MEDS: SODIUM CHLORIDE 0.9% FLUSH 5 ML FLUSH FLUSH SCH (09:00)
[2016-06-15] MEDS: CIPROFLOXACIN 400 MG PREMIX 200 ML IV SCH (09:24)
--- NOTE | 2016-06-15 10:13 | HHI.PR ---
Subjective Remarks Follow-up for GI bleed due to gastric varices. Mr. Lucero is doing well. No acute concerns. Waiting to be transferred to a tertiary care center for possible TIPS procedure. Objective Vitals Vital Signs Date Time Temp Pulse Resp B/P Pulse Ox O2 Delivery O2 Flow Rate FiO2 06/15/16 09:21 96 Nasal Cannula 3.00 06/15/16 08:00 84 06/15/16 08:00 97.7 93 19 86/63 94 06/15/16 06:00 99 06/15/16 04:00 98.7 91 16 108/69 97 06/15/16 04:00 91 06/15/16 02:00 80 06/15/16 00:00 98.6 82 14 114/58 98 06/15/16 00:00 82 06/14/16 22:00 112 06/14/16 20:17 95 Nasal Cannula 1.50 06/14/16 20:00 91 06/14/16 20:00 98.9 91 27 105/67 99 06/14/16 18:00 90 06/14/16 16:00 98.7 86 18 138/78 97 06/14/16 16:00 90 06/14/16 14:00 90 06/14/16 12:00 90 I/O 06/14/16 06/14/16 06/14/16 06/15/16 06/15/16 06/15/16 06:59 14:59 22:59 06:59 14:59 22:59 Intake Total 3511 ml 1665 ml 1009 ml 874 ml Output Total 850 ml 650 ml 450 ml 400 ml Balance 2661 ml 1015 ml 559 ml 474 ml Intake Oral 600 ml 380 ml 400 ml 400 ml IV Total 2911 ml 1285 ml 609 ml 474 ml Output Urine Total 850 ml 650 ml 450 ml 400 ml # Bowel Movements 1 Result Diagram: 06/13/16 0830 06/13/16 0508 Objective Remarks GENERAL: Alert, oriented 3 SKIN: Warm and dry. HEAD: Normocephalic. EYES: No scleral icterus. No injection or drainage. NECK: Supple, trachea midline. No JVD or lymphadenopathy. CARDIOVASCULAR: Regular rate and rhythm without murmurs, gallops, or rubs. RESPIRATORY: Breath sounds equal bilaterally. No accessory muscle use. GASTROINTESTINAL: Abdomen soft, non-tender, nondistended. MUSCULOSKELETAL: No cyanosis, or edema. BACK: Nontender without obvious deformity. No CVA tenderness. Procedures None A/P Problem List: (1) GI bleed ICD Code: K92.2 Status: Acute (2) Gastric varices ICD Code: I86.4 Status: Acute (3) Anemia ICD Code: D64.9 Status: Acute (4) Alcohol abuse ICD Code: F10.10 Status: Acute (5) COPD (chronic obstructive pulmonary disease) ICD Code: J44.9 Status: Chronic Assessment and Plan Mr. Lucero is a 65-year-old male with a PMH of HTN, CHF (Echo 04/12/16 w/ EF 45%) , COPD, Alcohol Abuse, h/o GI Bleed w/ Gastric Varices and Cirrhosis who was brought to the ER by EMS secondary to altered mental status on 06/12/2016. Patient complained of dizziness and lightheadedness as well as nausea for 3 days prior to this admission. In his recent admission in April 2016 patient underwent EGD with epinephrine injection not amenable to endoscopic therapy per GI. Patient was recommended to go to a tertiary care center for TIPS procedure but patient refused at that time. On arrival, BP 96/51, HR 108, O2 sat 97% on RA , Temp 99.1. WBC normal. Hgb 6.7, previously 10.6 on 05/01/16. Lactic Acid 3.1. INR 1.0. 2 units of PRBCs ordered in ER for transfusion. S/p IVF w/ BP improved to 130/65, HR 88. + Hemoccult positive. - Acute anemia due to upper GI bleed - Gastric varices - History of GI bleed secondary to gastroparesis. Suspect upper GI bleed again this admission. - Hemoglobin dropped again below 7 today. Will transfuse 1 unit. - Received 4 units of PRBCs so far including today's 1 unit. Hemoglobin 7.9 on 06/13/2016. - Continue Protonix drip, octreotide, ciprofloxacin and Flagyl. - GI is following this patient. Waiting for a bed at [facility]. However, we started an effort to transfer patient to [facility] - I discussed with ICU attending at [facility]. They will accept the patient. I went over the echo finding from 04/2016. - ICU attending at [facility] informed me that at [facility] patient will likely undergo EGD as well as another Echocardiogram. - Alcohol abuse. History of heavy alcohol use about half a liter of workup daily. Patient quit drinking about a month ago. - COPD - currently stable. Continue DuoNeb when necessary Full code. SCDs. Problem Qualifiers (1) Anemia: Chandler See DO Jun 15, 2016 10:13 am
[2016-06-15 11:21] LABS: MEAN CELL VOLUME 84.8 FL (80.0-100.0); MEAN CORPUSCULAR HEMOGLOBIN 27.1 PG (27.0-34.0); MEAN CORPUSCULAR HGB CONC 31.9 % (32.0-36.0); PLATELET COUNT 154 TH/MM3 (150-450); RED BLOOD COUNT 2.28 MIL/MM3 (4.50-5.90); RED CELL DISTRIBUTION WIDTH 17.7 % (11.6-17.2); WHITE BLOOD COUNT 4.2 TH/MM3 (4.0-11.0)
[2016-06-15 11:27] LABS: HEMATOCRIT 19.4 % (39.0-51.0); REVIEW FLAG FINAL
[2016-06-15] MEDS ORDERED: diphenhydrAMINE HCL 25 MG CAP PO PRN (12:00)
[2016-06-15] MEDS ORDERED: SODIUM CHLOR 0.9% 250 ML INJ 250 ML IV ONE (12:00)
[2016-06-15] MEDS ORDERED: ACETAMINOPHEN 325 MG TAB PO PRN (12:00)
[2016-06-15 13:57] LABS: BICARBONATE 25.4 MEQ/L (21.0-32.0); POTASSIUM 3.6 MEQ/L (3.5-5.1)
[2016-06-15] MEDS: RESP: ALBUTEROL 2.5 MG/IPRATROPIUM 0.5 MG NEB (PRN) NEB (15:04)
== END 2016-06-15 18:29 | disposition short-term general hospital (02) | DRG 300 ==
LOC: NEPC 01:35 → NEDA 04:16 → NEDH 09:19 → HIMN 14:45
PROVIDERS: ADMIT Hospitalist; ATTEND Hospitalist
PROC: 30233N1 Transfusion of Nonautologous Red Blood Cells into Peripheral Vein, Percutaneous Approach (ICD-10-PCS; principal; 2016-06-12)
DX: I86.4 Gastric varices (principal); K76.6 Portal hypertension; J96.10 Chronic respiratory failure, unspecified whether with hypoxia or hypercapnia; K92.1 Melena; K70.30 Alcoholic cirrhosis of liver without ascites; E72.20 Disorder of urea cycle metabolism, unspecified; D62 Acute posthemorrhagic anemia; I50.9 Heart failure, unspecified; I11.0 Hypertensive heart disease with heart failure; J44.9 Chronic obstructive pulmonary disease, unspecified; K31.89 Other diseases of stomach and duodenum; K59.00 Constipation, unspecified; F10.10 Alcohol abuse, uncomplicated; K31.84 Gastroparesis; E66.3 Overweight; Z68.38 Body mass index [BMI] 38.0-38.9, adult; Z85.828 Personal history of other malignant neoplasm of skin
CPT/HCPCS: 36430; 76937; 80048; 80053; 82140; 83605; 83690; 85014; 85018; 85025; 85027; 85610; 85730; 86850; 86900; 86901; 86920; 87641; 93005; 94640; 94664; 96361; 96365; C9113; J0696; J0744; J2270; J2354; J7030; J7040; J7050; P9016

== ENCOUNTER 2017-04-18 12:32 | Emergency (ER) | payer MEDICARE, BC ==
[~2017-04-18] VITALS: Ht 188 cm; Wt 145.0 kg
[2017-04-18 12:33] VITALS: BP 176/90; PULSE 107; RESP 20; TEMP 99.5; O2SAT 95
[2017-04-18] MEDS ORDERED: IOHEXOL 350 MG/ML 10 ML VIAL (for RAD DIAG) IVCONTRAST ONE (12:33)
[2017-04-18] MEDS ORDERED: IPRAAER INH (12:59)
[2017-04-18 13:04] VITALS: BP 131/80; PULSE 97; RESP 20; TEMP 99.3; O2SAT 97
[2017-04-18] MEDS ORDERED: IPRA0.02 NEB (13:07)
[2017-04-18 13:14] VITALS: O2SAT 99
[2017-04-18] MEDS ORDERED: ONDANSETRON HCL 4 MG/2 ML VIAL IVP ONE (13:15)
[2017-04-18] MEDS ORDERED: SODIUM CHLORIDE 0.9% FLUSH 10 ML FLUSH IV FLUSH PRN (13:15)
--- NOTE | 2017-04-18 13:15 | PD ---
HPI Chief Complaint: GI Complaint Time Seen by Provider: 12:49 Travel History International Travel<30 days: No Contact w/Intl Traveler<30days: No Traveled to known affect area: No History of Present Illness HPI 66-year-old male with history of cirrhosis presents to the emergency room for evaluation of nausea without vomiting and nonbloody diarrhea for the past 5 days. States he has had such severe diarrhea he often doesn't make it to the bathroom. He has had a max of 10 episodes of diarrhea per day but states it is a very small amount. He has only had 2 episodes today. He denies any abdominal pain or hematochezia. States his brought him Imodium but it says on the box not to take if you have liver problems so he has not had any doses. Patient states symptoms started after eating seafood at a restaurant. His lives with him and has no symptoms. He is hungry but has not eaten in 24 hours. He reports chills without objective fever or night sweats. No chronic medical conditions other than COPD. Denies recent antibiotic use. PFSH Past Medical History Cancer: Yes (SKIN, basal) Cardiovascular Problems: No COPD: Yes Diabetes: No Diminished Hearing: No Glaucoma: No Hepatitis: No Hiatal Hernia: No Hypertension: Yes Medical other: Yes (MUSCLE CRAMPS) Respiratory: Yes (ASBESTOS) Immunizations Current: No Thyroid Disease: No ?: Not Past Surgical History Genitourinary Surgery: Yes (vasectomy) Pacemaker: No Other Surgery: Yes (gastric varacies, TIPS in June) Social History Alcohol Use: No Tobacco Use: No Substance Use: No Allergies-Medications (Allergen,Severity, Reaction): Coded Allergies: No Known Allergies (Unverified , 06/12/16) Reported Meds & Prescriptions Reported Meds & Active Scripts Active Flagyl (Metronidazole) 500 Mg Tab 500 Mg PO BID 5 Days Cipro (Ciprofloxacin HCl) 500 Mg Tab 500 Mg PO BID 5 Days Reported Ipratropium Neb (Ipratropium [place]) 0.5 Mg/2.5 Ml Amp 0.5 Mg NEB Q6HR NEB Combivent Respimat Inh (Ipratropium-Albuterol Inh) 20-100 Fpc/Act Aero 1 Puff INH QID Review of Systems Except as stated in HPI: all other systems reviewed are Neg Physical Exam Narrative GENERAL: Well-nourished, morbidly obese male in no acute distress. Afebrile. Ambulatory. SKIN: Focused skin assessment warm/dry. HEAD: Normocephalic. EYES: No scleral icterus. No injection or drainage. NECK: Supple, trachea midline. No JVD or lymphadenopathy. CARDIOVASCULAR: Regular rate and rhythm without murmurs, gallops, or rubs. RESPIRATORY: Breath sounds equal bilaterally. No accessory muscle use. GASTROINTESTINAL: Abdomen soft, nondistended. No tenderness to palpation. No peritoneal signs. No rebound tenderness or guarding. Data Data Last Documented VS Vital Signs Date Time Temp Pulse Resp B/P (MAP) Pulse Ox O2 Delivery O2 Flow Rate FiO2 04/18/17 13:14 99 04/18/17 13:04 99.3 97 20 Room Air Orders Orders Complete Blood Count With Diff (04/18/17 13:03) Comprehensive Metabolic Panel (04/18/17 13:03) Lactic Acid (04/18/17 13:03) Prothrombin Time / Inr (Pt) (04/18/17 13:03) Act Partial Throm Time (Ptt) (04/18/17 13:03) Urinalysis - C+S If Indicated (04/18/17 13:03) Iv Access Insert/Monitor (04/18/17 13:03) Ecg Monitoring (04/18/17 13:03) Oximetry (04/18/17 13:03) Ondansetron Inj (Zofran Inj) (04/18/17 13:15) Sodium Chloride 0.9% Flush (Ns Flush) (04/18/17 13:15) Ct Abd/Pel W Iv Contrast(Rout) (04/18/17 ) Lipase (04/18/17 13:13) Sodium Chlor 0.9% 1000 Ml Inj (Ns 1000 M (04/18/17 13:30) Iohexol 350 Inj (Omnipaque 350 Inj) (04/18/17 12:33) Labs Laboratory Tests Test 04/18/17 13:15 04/18/17 13:30 White Blood Count 7.1 TH/MM3 Red Blood Count 5.02 MIL/MM3 Hemoglobin 15.2 GM/DL Hematocrit 45.9 % Mean Corpuscular Volume 91.5 FL Mean Corpuscular Hemoglobin 30.4 PG Mean Corpuscular Hemoglobin Concent 33.2 % Red Cell Distribution Width 15.7 % Platelet Count 182 TH/MM3 Mean Platelet Volume 8.6 FL Neutrophils (%) (Auto) 66.9 % Lymphocytes (%) (Auto) 16.2 % Monocytes (%) (Auto) 15.4 % Eosinophils (%) (Auto) 1.2 % Basophils (%) (Auto) 0.3 % Neutrophils # (Auto) 4.7 TH/MM3 Lymphocytes # (Auto) 1.1 TH/MM3 Monocytes # (Auto) 1.1 TH/MM3 Eosinophils # (Auto) 0.1 TH/MM3 Basophils # (Auto) 0.0 TH/MM3 CBC Comment DIFF FINAL Differential Comment Prothrombin Time 11.9 SEC Prothromb Time International Ratio 1.1 RATIO Activated Partial Thromboplast Time 26.3 SEC Blood Urea Nitrogen 8 MG/DL Creatinine 0.90 MG/DL Random Glucose 94 MG/DL Total Protein 8.5 GM/DL Albumin 3.0 GM/DL Calcium Level 8.7 MG/DL Alkaline Phosphatase 106 U/L Aspartate Amino Transf (AST/SGOT) 49 U/L Alanine Aminotransferase (ALT/SGPT) 43 U/L Total Bilirubin 0.8 MG/DL Sodium Level 133 MEQ/L Potassium Level 3.6 MEQ/L Chloride Level 100 MEQ/L Carbon Dioxide Level 28.9 MEQ/L Anion Gap 4 MEQ/L Estimat Glomerular Filtration Rate 85 ML/MIN Lactic Acid Level 1.4 mmol/L MDM Medical Decision Making Medical Screen Exam Complete: Yes Emergency Medical Condition: Yes Medical Record Reviewed: Yes Differential Diagnosis Cirrhosis, diverticulitis, pancreatitis, gastroenteritis Narrative Course 66-year-old male with history of cirrhosis presents to the emergency room for evaluation of nausea without vomiting and diarrhea for the past 5 days. Symptoms started shortly after eating seafood at a restaurant. His does not have any similar symptoms. Reports associated chills without objective fever. He is afebrile and well-appearing in the emergency room. Abdomen soft, nontender. Morbidly obese. IV access established and basic labs obtained. CBC and CMP are unremarkable. Lactic acid is 1.4. CT shows possible early colitis of the mid sigmoid colon but no other acute abnormalities. Patient states he is hungry in the ED and is feeling better and ready to go home. He has not had any episodes of diarrhea since this morning. He will be given empiric treatment with Flagyl and Cipro and told to follow up with her primary care physician or return for worsening symptoms. He understands and agrees to plan. Diagnosis Primary Impression: Gastroenteritis Referrals: Primary Care Physician Additional Instructions: Rest and drink plenty of fluids. If you still feel ill tomorrow, take Flagyl and Cipro as directed, until gone. Follow-up with a primary care physician. Return to the emergency room for worsening symptoms. Med/Other Pt SpecificInfo: Prescription(s) given Scripts Metronidazole (Flagyl) 500 Mg Tab 500 MG PO BID for Infection for 5 Days, #10 TAB 0 Refills Prov: Chio Sierra DO 04/18/17 Ciprofloxacin (Cipro) 500 Mg Tab 500 MG PO BID for Infection for 5 Days, #10 TAB 0 Refills Prov: Chio Sierra DO 04/18/17 Disposition: 01 DISCHARGE HOME Condition: Stable Tatiana Ramirez Apr 18, 2017 13:15
[2017-04-18] MEDS ORDERED: SODIUM CHLOR 0.9% 1000 ML INJ 1,000 ML IV ONE (13:30)
[2017-04-18 13:34] LABS: AUTOMATED NEUTROPHIL # 4.7 TH/MM3 (1.8-7.7); BASOPHIL % 0.3 % (0.0-2.0); EOSINOPHIL # 0.1 TH/MM3 (0-0.4); EOSINOPHIL % 1.2 % (0.0-4.0); HEMATOCRIT 45.9 % (39.0-51.0); HEMO FLAGS DIFF FINAL; LYMPH % 16.2 % (9.0-44.0); LYMPHOCYTE # 1.1 TH/MM3 (1.0-4.8); MEAN CELL VOLUME 91.5 FL (80.0-100.0); MEAN CORPUSCULAR HEMOGLOBIN 30.4 PG (27.0-34.0); MEAN CORPUSCULAR HGB CONC 33.2 % (32.0-36.0); MONO % 15.4 % (0.0-8.0); NEUT % 66.9 % (16.0-70.0); PLATELET COUNT 182 TH/MM3 (150-450); RED BLOOD COUNT 5.02 MIL/MM3 (4.50-5.90); RED CELL DISTRIBUTION WIDTH 15.7 % (11.6-17.2); WHITE BLOOD COUNT 7.1 TH/MM3 (4.0-11.0)
[2017-04-18 13:45] LABS: APTT (PATIENT) 26.3 SEC (24.3-30.1); INTERNATIONAL NORMALIZED RATIO 1.1 RATIO; PROTHROMBIN TIME - PATIENT 11.9 SEC (9.8-11.6)
[2017-04-18 13:54] LABS: ANION GAP 4 MEQ/L (5-15); AST (GOT) 49 U/L (15-37); BICARBONATE 28.9 MEQ/L (21.0-32.0); BLOOD UREA NITROGEN 8 MG/DL (7-18); CHLORIDE 100 MEQ/L (98-107); GLOMERULAR FILTRATION RATE 85 ML/MIN (>89); POTASSIUM 3.6 MEQ/L (3.5-5.1); SODIUM (NA) 133 MEQ/L (136-145)
[2017-04-18 13:55] LABS: ALT (GPT) 43 U/L (12-78)
[2017-04-18 13:57] LABS: ALKALINE PHOSPHATASE 106 U/L (45-117); TOTAL BILIRUBIN ADULT 0.8 MG/DL (0.2-1.0)
--- NOTE | 2017-04-18 14:39 | RADRPT ---
EXAM DATE/TIME: 04/18/2017 14:21 [facility] COMPARISON: CT ABDOMEN & PELVIS W CONTRAST, April 16, 2016, 21:22. INDICATIONS : Diarrhea and abdomen pain for five days. IV CONTRAST: 96 cc Omnipaque 350 (iohexol) IV ORAL CONTRAST: No oral contrast ingested. RADIATION DOSE: 19.89 CTDIvol (mGy) ; Patient body habitus MEDICAL HISTORY : Chronic obstructive pulmonary disease. Hypertension. Cirrhosis. SURGICAL HISTORY : Vascetomy. ENCOUNTER: Initial ACUITY: 4 - 6 days PAIN SCALE: 6/10 LOCATION: Bilateral lower quadrant TECHNIQUE: Volumetric scanning of the abdomen and pelvis was performed. Using automated exposure control and ad justment of the mA and/or kV according to patient size, radiation dose was kept as low as reasonably achievable to obtain optimal diagnostic quality images. DICOM format image data is available electro nically for review and comparison. FINDINGS: The lung base is are clear. Well-circumscribed low-density lesion left lobe of the liver. The liver is small and shrunken. The spleen, pancreas, adrenals and are unremarkable. 2 cm cyst left kidney stable. There is no intracranial adenopathy There is no ascites or adenopathy 3 mild mesenteric induration in the region of the sigmoid colon left iliac crest nonspecific but usua lly inflammatory. No diverticuli evident. This could be early colitis. Pelvic contents are unremarkable. Moderate calcification origin of the superior mesenteric artery CONCLUSION: Possible early colitis mid sigmoid colon. There are no diverticuli to suggest diverticulitis Small shrunken liver Calcification origin SMA not felt to be hemodynamically significant. Evan Sanchez MD FACR on April 18, 2017 at 14:35 Board Certified Radiologist. This report was verified electronically.
[2017-04-18] MEDS ORDERED: METR-1 PO (15:16)
[2017-04-18] MEDS ORDERED: CIPR-9 PO (15:16)
== END 2017-04-18 16:06 | disposition home or self-care (01) ==
LOC: NEPD 12:32
DX: K52.9 Noninfective gastroenteritis and colitis, unspecified (principal); I10 Essential (primary) hypertension; K74.60 Unspecified cirrhosis of liver; E66.01 Morbid (severe) obesity due to excess calories; Z85.828 Personal history of other malignant neoplasm of skin; Z87.09 Personal history of other diseases of the respiratory system
CPT/HCPCS: 74177; 80053; 83605; 83690; 85025; 85610; 85730; 96360; 99285; J7030; Q9967

== ENCOUNTER 2017-11-05 16:18 | Observation (INO) | payer MEDICARE, BC ==
[~2017-11-05] VITALS: Ht 188 cm; Wt 151.4 kg
[2017-11-05] VITALS (16 sets, daily range): BP systolic 104–182; BP diastolic 62–122; PULSE 98–116; RESP 14–27; TEMP 98.7–99.6; O2SAT 92–99
[~2017-11-05 16:18] MED LIST changes: -ALBU6.7H INH; +CIPR-9 PO; -FOLI1TAB4 PO; +IPRA0.02 NEB; +IPRAAER INH; -IPRASOL INH; -PROT40TA PO; -THERTAB15 PO; -VANC500I3 PO; -VITA100T2 PO; -ZOFR4TAB3 SL
--- NOTE | 2017-11-05 16:30 | PD ---
HPI Chief Complaint: Respiratory Symptoms Time Seen by Provider: 16:30 Travel History International Travel<30 days: No Contact w/Intl Traveler<30days: No Traveled to known affect area: No History of Present Illness HPI 66-year-old male came to the emergency room with history of severe shortness of breath. Patient says he has been short of breath for past 3 days but it got really worse today. His who later on came and said that he nearly passed out and that is when she decided to bring him to the emergency room. Patient has history of COPD. He appeared to be in significant distress when I saw him. Vital signs were suggestive of tachypnea and tachycardia. No history of chest pain. [facility] Past Medical History Narrative Medical List of his past medical, surgical, social and family history is reviewed from the nursing note. Cancer: Yes (SKIN, basal) Cardiovascular Problems: No COPD: Yes Diabetes: No Diminished Hearing: No Glaucoma: No Hepatitis: No Hiatal Hernia: No Hypertension: Yes Respiratory: Yes Immunizations Current: No Thyroid Disease: No Past Surgical History Genitourinary Surgery: Yes (vasectomy) Pacemaker: No Other Surgery: Yes (gastric varacies, TIPS in June) Social History Alcohol Use: No Tobacco Use: No Substance Use: No Allergies-Medications (Allergen,Severity, Reaction): Coded Allergies: No Known Allergies (Unverified Allergy, Unknown, 11/05/17) Comments List of his allergies reviewed from the nursing note. Reported Meds & Prescriptions Reported Meds & Active Scripts Active Reported [Bp Pill] 0.5 Tab PO DAILY Combivent Respimat Inh (Ipratropium-Albuterol Inh) 20-[address] Half-[address]/Act Aero 1 Puff INH QID Narrative Medication List of his home medications reviewed from the nursing note. Review of Systems Except as stated in HPI: all other systems reviewed are Neg Respiratory: Positive: Shortness of Breath Physical Exam Narrative GENERAL: Awake, alert, moderate to significant respiratory distress, morbidly obese SKIN: Focused skin assessment warm/dry. HEAD: Atraumatic. Normocephalic. EYES: Pupils equal and round. No scleral icterus. No injection or drainage. ENT: No nasal bleeding or discharge. Mucous membranes pink and moist. NECK: Trachea midline. No JVD. CARDIOVASCULAR: Regular rate and rhythm. No murmur appreciated. RESPIRATORY: Patient is sitting up and tachypneic. Accessory muscles of respirations used. No obvious wheeze or adventitious lung sounds can be heard. GASTROINTESTINAL: Abdomen soft, non-tender, nondistended. Hepatic and splenic margins not palpable. MUSCULOSKELETAL: No obvious deformities. No clubbing. No cyanosis. No edema. NEUROLOGICAL: Awake and alert. No obvious cranial nerve deficits. Motor grossly within normal limits. Normal speech. PSYCHIATRIC: Appropriate mood and affect; insight and judgment normal. Data Data Last Documented VS Vital Signs Date Time Temp Pulse Resp B/P (MAP) Pulse Ox O2 Delivery O2 Flow Rate FiO2 11/05/17 19:21 103 14 130/77 (94) 99 BiPAP 50 11/05/17 16:58 4.00 11/05/17 16:48 99.6 Orders Orders Albuterol-Ipratropium Neb (Duoneb Neb) (11/05/17 16:45) Complete Blood Count With Diff (11/05/17 17:16) Basic Metabolic Panel (Bmp) (11/05/17 17:16) B-Type Natriuretic Peptide (11/05/17 17:16) Prothrombin Time / Inr (Pt) (11/05/17 17:16) Magnesium (Mg) (11/05/17 17:16) Troponin I (11/05/17 17:16) Arterial Blood Gas (Abg) (11/05/17 17:16) Iv Access Insert/Monitor (11/05/17 17:16) Electrocardiogram (11/05/17 17:16) Ecg Monitoring (11/05/17 17:16) Oximetry (11/05/17 17:16) Oxygen Administration (11/05/17 17:16) Chest, Single Ap (11/05/17 17:16) Sodium Chloride 0.9% Flush (Ns Flush) (11/05/17 17:30) Methylprednisolone So Succ Inj (Solumedr (11/05/17 17:30) Albuterol Neb (Albuterol Neb) (11/05/17 17:30) Resp Bipap / Cpap Non Invas Vt (11/05/17 17:16) Blood Culture (11/05/17 17:17) Ct Pulmonary Angiogram (11/05/17 ) Iohexol 350 Inj (Omnipaque 350 Inj) (11/05/17 19:00) Azithromycin Inj (Zithromax Inj) (11/05/17 19:30) Ceftriaxone Inj (Rocephin Inj) (11/05/17 19:30) Admit Order (Ed Use Only) (11/05/17 ) Assistant Press Operator / Telemetry GARIMA.Q8H (11/05/17 19:36) Vital Signs (Adult) Q4H (11/05/17 19:36) Diet Heart Healthy (11/06/17 Breakfast) Activity Oob With Assistance (11/05/17 19:36) Notify Dr: Other (11/05/17 19:36) Labs Laboratory Tests Test 11/05/17 15:25 11/05/17 18:00 White Blood Count 7.7 TH/MM3 Red Blood Count 5.22 MIL/MM3 Hemoglobin 16.7 GM/DL Hematocrit 50.0 % Mean Corpuscular Volume 95.8 FL Mean Corpuscular Hemoglobin 32.0 PG Mean Corpuscular Hemoglobin Concent 33.4 % Red Cell Distribution Width 13.4 % Platelet Count 184 TH/MM3 Mean Platelet Volume 8.4 FL Neutrophils (%) (Auto) 74.2 % Lymphocytes (%) (Auto) 11.9 % Monocytes (%) (Auto) 11.7 % Eosinophils (%) (Auto) 1.5 % Basophils (%) (Auto) 0.7 % Neutrophils # (Auto) 5.7 TH/MM3 Lymphocytes # (Auto) 0.9 TH/MM3 Monocytes # (Auto) 0.9 TH/MM3 Eosinophils # (Auto) 0.1 TH/MM3 Basophils # (Auto) 0.1 TH/MM3 CBC Comment DIFF FINAL Differential Comment Prothrombin Time 11.6 SEC Prothromb Time International Ratio 1.1 RATIO Blood Urea Nitrogen 12 MG/DL Creatinine 0.81 MG/DL Random Glucose 105 MG/DL Calcium Level 8.6 MG/DL Magnesium Level 2.0 MG/DL Sodium Level 134 MEQ/L Potassium Level 3.4 MEQ/L Chloride Level 99 MEQ/L Carbon Dioxide Level 27.7 MEQ/L Anion Gap 7 MEQ/L Estimat Glomerular Filtration Rate 96 ML/MIN Troponin I LESS THAN 0.02 NG/ML B-Type Natriuretic Peptide 302 PG/ML Blood Gas Puncture Site RT RADIAL Blood Gas Patient Temperature 98.6 Blood Gas HCO3 26 mmol/L Blood Gas Base Excess 2.3 mmol/L Blood Gas Oxygen Saturation 98 % Arterial Blood pH 7.47 Arterial Blood Partial Pressure CO2 36 mmHG Arterial Blood Partial Pressure O2 451 mmHG Arterial Blood Oxygen Content 24.6 Vol % Arterial Blood Carboxyhemoglobin 1.2 % Arterial Blood Methemoglobin 1.1 % Blood Gas Hemoglobin 17.1 G/DL Oxygen Delivery Device BIPAP Blood Gas Ventilator Setting EPAP 7/IPAP 14 Blood Gas Inspired Oxygen 100 % MDM Medical Decision Making Medical Screen Exam Complete: Yes Emergency Medical Condition: Yes Medical Record Reviewed: Yes Interpretation(s) Twelve-lead EKG was reviewed by me. Normal sinus rhythm, sinus tachycardia, right axis deviation, nonspecific ST-T wave changes. Heart rate of 121 bpm. Differential Diagnosis COPD exacerbation, PE, pneumonia, CHF Narrative Course 6:19 PM blood test results are back and within acceptable limits. Chest x-ray shows bibasilar atelectasis. I started the patient on BiPAP and 3 nebulizers. I went back and reassessed him and he says the BiPAP is helping. Blood gas was done a half an hour after being on BiPAP and appears to be within acceptable limits. I have ordered a CT pulmonary angiogram to rule out PE. 7:19 PM case was signed over to the oncoming ER physician to follow-up on the CT pulmonary angiogram and then admit the patient. Critical Care Narrative Aggregate critical care time was 45 minutes. Time to perform other separately billable procedures was not included in the critical care time. My time did not include minutes spent treating any other patients simultaneously or on activities that did not directly contribute to the patient's treatment. The services I provided to this patient were to treat and/or prevent clinically significant deterioration that could result in: Acute respiratory distress, hypoxia, COPD exacerbation, BiPAP management I provided critical care services requiring my management, as noted below: Chart data review, documentation time, medication orders and management, vital sign assessments/reviewing monitor data, ordering and reviewing lab tests, ordering and interpreting/reviewing x-rays and diagnostic studies, care of the patient and discussion of the patient with the admitting physicians. Procedures EKG Prior to Arrival: No Diagnosis Primary Impression: Respiratory failure Qualified Codes: J96.01 - Acute respiratory failure with hypoxia Additional Impression: COPD exacerbation Admitting Information Admitting Physician Requests: Admit Scripts Azithromycin (Azithromycin) 250 Mg Tab 250 MG PO DAILY for Infection, #4 TAB 0 Refills Prov: Erickson Gandhi MD 11/07/17 Prednisone (Prednisone) 20 Mg Tab 20 MG PO BID for Breathing Treatment, #14 TAB 0 Refills Prov: Erickson Gandhi MD 11/07/17 Budesonide-Formoterol Inh (Symbicort Inh) 160-4.5 Mcg/Act Aero 2 PUFF INH Q12HR, #1 INHALER 3 Refills Prov: Erickson Gandhi MD 11/07/17 Albuterol 18 GM Inh (Ventolin Hfa 18 GM Inh) 90 Mcg/Act Aer 2 PUFF INH Q4-6H Y for SHORTNESS OF BREATH, #1 INHALER 3 Refills Prov: Erickson Gandhi MD 11/07/17 Ipratropium HFA 12.9 GM Inh (Atrovent HFA 12.9 GM Inh) 17 Mcg/Actuation Aer 2 PUFF INH Q6HR Y for SHORTNESS OF BREATH, #1 INHALER 3 Refills Prov: Erickson Gandhi MD 11/07/17 Thiamine HCl (Gnp Vitamin B-1) 100 Mg Tab 100 MG PO DAILY for Alcohol Detox, #30 TAB Prov: Erickson Gandhi MD 11/07/17 Tiotropium Inh (Spiriva Handihaler) 18 Mcg Cap 18 MCG INH DAILY for Breathing Treatment, #30 CAP 1 capsule = 18 mcg Prov: Erickson Gandhi MD 11/07/17 Gin Redd MD November 05, 2017 16:30
[2017-11-05] MEDS ORDERED: BP PILL PO (16:35)
[2017-11-05] MEDS ORDERED: RESP: ALBUTEROL 2.5 MG/IPRATROPIUM 0.5 MG NEB (SCH) NEB ONE (16:45)
[2017-11-05] MEDS: RESP: ALBUTEROL 2.5 MG/3 ML NEB (SCH) INH ×2 (17:28→17:41)
[2017-11-05] MEDS ORDERED: methylPREDNISolone SOD SUCC 125 MG/2 ML VIAL IV PUSH ONE (17:30)
[2017-11-05] MEDS ORDERED: SODIUM CHLORIDE 0.9% FLUSH 10 ML FLUSH IVF PRN (17:30)
--- NOTE | 2017-11-05 17:44 | RADRPT ---
EXAM DATE: 11/05/2017 5:35 PM EDT AGE/SEX: 66 years / Male INDICATIONS: Short of breath CLINICAL DATA: This is the patient's initial encounter. Patient reports that signs and symptoms have been present for 1 day and indicates a pain score of 3/10. MEDICAL/SURGICAL HISTORY: Hypertension. Chronic obstructive pulmonary disease. Asbestos None. COMPARISON: [facility] [place], CT ABDOMEN & PELVIS W CONTRAST, 04/18/2017. . FINDINGS: There is basilar density, probably dependent atelectasis. Heart size appears to be borderline to mild ly enlarged. No pneumothorax or significant effusion. CONCLUSION: Basilar atelectasis. Electronically signed by: Tonny Luque MD 11/05/2017 5:43 PM EDT
[2017-11-05 17:46] LABS: AUTOMATED NEUTROPHIL # 5.7 TH/MM3 (1.8-7.7); BASOPHIL # 0.1 TH/MM3 (0-0.2); BASOPHIL % 0.7 % (0.0-2.0); EOSINOPHIL # 0.1 TH/MM3 (0-0.4); EOSINOPHIL % 1.5 % (0.0-4.0); HEMOGLOBIN 16.7 GM/DL (13.0-17.0); LYMPH % 11.9 % (9.0-44.0); LYMPHOCYTE # 0.9 TH/MM3 (1.0-4.8); MEAN CELL VOLUME 95.8 FL (80.0-100.0); MEAN CORPUSCULAR HGB CONC 33.4 % (32.0-36.0); MEAN PLATELET VOLUME 8.4 FL (7.0-11.0); MONO % 11.7 % (0.0-8.0); MONOCYTE # 0.9 TH/MM3 (0-0.9); NEUT % 74.2 % (16.0-70.0); PLATELET COUNT 184 TH/MM3 (150-450); RED BLOOD COUNT 5.22 MIL/MM3 (4.50-5.90); RED CELL DISTRIBUTION WIDTH 13.4 % (11.6-17.2); WHITE BLOOD COUNT 7.7 TH/MM3 (4.0-11.0)
[2017-11-05 17:57] LABS: CHLORIDE 99 MEQ/L (98-107); SODIUM (NA) 134 MEQ/L (136-145)
[2017-11-05 17:59] LABS: CALCIUM 8.6 MG/DL (8.5-10.1)
[2017-11-05 18:00] LABS: BICARBONATE 27.7 MEQ/L (21.0-32.0); BLOOD UREA NITROGEN 12 MG/DL (7-18); GLUCOSE,RANDOM 105 MG/DL (74-106)
[2017-11-05 18:02] LABS: INTERNATIONAL NORMALIZED RATIO 1.1 RATIO; PROTHROMBIN TIME - PATIENT 11.6 SEC (9.8-11.6)
[2017-11-05 18:03] LABS: CREATININE 0.81 MG/DL (0.60-1.30); GLOMERULAR FILTRATION RATE 96 ML/MIN (>89)
[2017-11-05 18:08] LABS: TROPONIN I LESS THAN 0.02 NG/ML (0.02-0.05)
[2017-11-05] MEDS ORDERED: IOHEXOL 350 MG/ML 10 ML VIAL (for RAD DIAG) IVCONTRAST ONE (19:00)
--- NOTE | 2017-11-05 19:25 | RADRPT ---
EXAM DATE: 11/05/2017 7:18 PM EDT AGE/SEX: 66 years / Male INDICATIONS: Shortness of breath for three days. CLINICAL DATA: This is the patient's initial encounter. Patient reports that signs and symptoms have been present for 1 day and indicates a pain score of 0/10. MEDICAL/SURGICAL HISTORY: Chronic obstructive pulmonary disease. Carcinoma, skin cancer. Hyperten cat. None. RADIATION DOSE: 21.62 CTDI (mGy) ; Patient body habitus COMPARISON: No prior [facility] exams available for comparison. TECHNIQUE: Volumetric scanning was performed using a multi-row detector CT scanner during bolus infu cat of 74 ml Omnipaque 350 (iohexol) nonionic water-soluble contrast as a single exam dose. The angely a was post processed with a variety of visualization algorithms including full volume maximum intensi ty projection and sliding thin slab reformation. Using automated exposure control and adjustment of the mA and/or kV according to patient size, radiation dose was kept as low as reasonably achievable t o obtain optimal diagnostic quality images. FINDINGS: No filling defects to suggest pulmonary embolic disease. There is some scattered mild airspace disease in the left lung involving upper lobe and lower lobe so me peribronchial thickening and mildly enlarged left hilar lymph nodes. Right lung is relatively samuel r. No acute pleural or pericardial effusion. Moderate coronary calcifications. Upper abdomen reveals a nodular liver, probably cirrhosis. CONCLUSION: 1. Negative for pulmonary embolus. 2. Scattered mild airspace disease in the left lung associated with peribronchial thickening and mil dly enlarged left hilar lymph nodes. Mild emphysema. Electronically signed by: Tonny Luque MD 11/05/2017 7:23 PM EDT
[2017-11-05] MEDS ORDERED: cefTRIAXone INJ 2,000 MG in SODIUM CHLORIDE 0.9% INJ 100 ML IV ONE (19:30)
[2017-11-05] MEDS ORDERED: AZITHROMYCIN INJ 500 MG in SODIUM CHLOR 0.9% 250 ML INJ 250 ML IV ONE (19:30)
--- NOTE | 2017-11-05 19:43 | PD ---
Physical Exam Date Seen by Provider: November 05, 2017 Narrative Care was assumed at [address] for PE. This patient had presented with a 3 day history of increasing dyspnea. He had a near syncopal episode today which is what caused him to present to us. He has a history of COPD. The patient required BiPAP while here in the ED. Data Data Last Documented VS Vital Signs Date Time Temp Pulse Resp B/P (MAP) Pulse Ox O2 Delivery O2 Flow Rate FiO2 11/05/17 19:21 103 14 130/77 (94) 99 BiPAP 50 11/05/17 16:58 4.00 11/05/17 16:48 99.6 Orders Orders Albuterol-Ipratropium Neb (Duoneb Neb) (11/05/17 16:45) Complete Blood Count With Diff (11/05/17 17:16) Basic Metabolic Panel (Bmp) (11/05/17 17:16) B-Type Natriuretic Peptide (11/05/17 17:16) Prothrombin Time / Inr (Pt) (11/05/17 17:16) Magnesium (Mg) (11/05/17 17:16) Troponin I (11/05/17 17:16) Arterial Blood Gas (Abg) (11/05/17 17:16) Iv Access Insert/Monitor (11/05/17 17:16) Electrocardiogram (11/05/17 17:16) Ecg Monitoring (11/05/17 17:16) Oximetry (11/05/17 17:16) Oxygen Administration (11/05/17 17:16) Chest, Single Ap (11/05/17 17:16) Sodium Chloride 0.9% Flush (Ns Flush) (11/05/17 17:30) Methylprednisolone So Succ Inj (Solumedr (11/05/17 17:30) Albuterol Neb (Albuterol Neb) (11/05/17 17:30) Resp Bipap / Cpap Non Invas Vt (11/05/17 17:16) Blood Culture (11/05/17 17:17) Ct Pulmonary Angiogram (11/05/17 ) Iohexol 350 Inj (Omnipaque 350 Inj) (11/05/17 19:00) Azithromycin Inj (Zithromax Inj) (11/05/17 19:30) Ceftriaxone Inj (Rocephin Inj) (11/05/17 19:30) Admit Order (Ed Use Only) (11/05/17 ) [employer] Ax Consultant / Telemetry GARIMA.Q8H (11/05/17 19:36) Vital Signs (Adult) Q4H (11/05/17 19:36) Diet Heart Healthy (11/06/17 Breakfast) Activity Oob With Assistance (11/05/17 19:36) Notify Dr: Other (11/05/17 19:36) Labs Laboratory Tests Test 11/05/17 15:25 11/05/17 18:00 White Blood Count 7.7 TH/MM3 Red Blood Count 5.22 MIL/MM3 Hemoglobin 16.7 GM/DL Hematocrit 50.0 % Mean Corpuscular Volume 95.8 FL Mean Corpuscular Hemoglobin 32.0 PG Mean Corpuscular Hemoglobin Concent 33.4 % Red Cell Distribution Width 13.4 % Platelet Count 184 TH/MM3 Mean Platelet Volume 8.4 FL Neutrophils (%) (Auto) 74.2 % Lymphocytes (%) (Auto) 11.9 % Monocytes (%) (Auto) 11.7 % Eosinophils (%) (Auto) 1.5 % Basophils (%) (Auto) 0.7 % Neutrophils # (Auto) 5.7 TH/MM3 Lymphocytes # (Auto) 0.9 TH/MM3 Monocytes # (Auto) 0.9 TH/MM3 Eosinophils # (Auto) 0.1 TH/MM3 Basophils # (Auto) 0.1 TH/MM3 CBC Comment DIFF FINAL Differential Comment Prothrombin Time 11.6 SEC Prothromb Time International Ratio 1.1 RATIO Blood Urea Nitrogen 12 MG/DL Creatinine 0.81 MG/DL Random Glucose 105 MG/DL Calcium Level 8.6 MG/DL Magnesium Level 2.0 MG/DL Sodium Level 134 MEQ/L Potassium Level 3.4 MEQ/L Chloride Level 99 MEQ/L Carbon Dioxide Level 27.7 MEQ/L Anion Gap 7 MEQ/L Estimat Glomerular Filtration Rate 96 ML/MIN Troponin I LESS THAN 0.02 NG/ML B-Type Natriuretic Peptide 302 PG/ML Blood Gas Puncture Site RT RADIAL Blood Gas Patient Temperature 98.6 Blood Gas HCO3 26 mmol/L Blood Gas Base Excess 2.3 mmol/L Blood Gas Oxygen Saturation 98 % Arterial Blood pH 7.47 Arterial Blood Partial Pressure CO2 36 mmHG Arterial Blood Partial Pressure O2 451 mmHG Arterial Blood Oxygen Content 24.6 Vol % Arterial Blood Carboxyhemoglobin 1.2 % Arterial Blood Methemoglobin 1.1 % Blood Gas Hemoglobin 17.1 G/DL Oxygen Delivery Device BIPAP Blood Gas Ventilator Setting EPAP 7/IPAP 14 Blood Gas Inspired Oxygen 100 % MDM Supervised Visit with MARCI: No Narrative Course Patient is awake and alert and is able to speak to me in complete sentences while wearing BiPAP. CBC & BMP Diagram 11/05/17 15:25 Calcium Level 8.6, Magnesium Level 2.0 Last Impressions Chest X-Ray 11/05/17 1716 Signed Impressions: CONCLUSION: Basilar atelectasis. CT Angiography 11/05/17 0000 Signed Impressions: CONCLUSION: 1. Negative for pulmonary embolus. 2. Scattered mild airspace disease in the left lung associated with peribronch ial thickening and mildly enlarged left hilar lymph nodes. Mild emphysema. Blood cultures had already been obtained. The airspace disease has subsequently been treated with Rocephin 2 g IV and Zithromax 500 mg IV. Arrangements have been made for the patient to be admitted to the hospital. He will require the intensive care unit because of the BiPAP. Diagnosis Primary Impression: Respiratory failure Qualified Codes: J96.01 - Acute respiratory failure with hypoxia Additional Impressions: COPD exacerbation Pneumonia Qualified Codes: J18.9 - Pneumonia, unspecified organism Admitting Information Admitting Physician Requests: Admit Condition: Stable Celina Yeboah MD November 05, 2017 19:43
[2017-11-05] MEDS ORDERED: RESP: ALBUTEROL 2.5 MG/IPRATROPIUM 0.5 MG NEB (PRN) NEB (19:45)
[2017-11-05] MEDS ORDERED: SODIUM CHLORIDE 0.9% FLUSH 10 ML FLUSH IV FLUSH PRN (20:00)
[2017-11-05] MEDS ORDERED: NALOXONE HCL 0.4 MG/ML AMP IV PUSH PRN (20:00)
[2017-11-05] MEDS ORDERED: ONDANSETRON HCL 4 MG/2 ML VIAL IVP PRN (20:00)
[2017-11-05] MEDS ORDERED: ACETAMINOPHEN 325 MG TAB PO PRN (20:00)
[2017-11-05] MEDS ORDERED: POTASSIUM CHLORIDE 10 MEQ CONTROLLED RELEASE TAB PO ONE (21:30)
[2017-11-05] MEDS: ENOXAPARIN SODIUM 40 MG/0.4 ML SYRINGE SQ SCH (21:49)
[2017-11-05] MEDS: SODIUM CHLORIDE 0.9% FLUSH 10 ML FLUSH IV FLUSH SCH (21:50)
[2017-11-05] MEDS: RESP: ALBUTEROL 2.5 MG/IPRATROPIUM 0.5 MG NEB (SCH) NEB (21:54)
[2017-11-05] MEDS ORDERED: CHLORHEXIDINE GLUCONATE 2 % 1 PACK (2 CLOTHS)(extra cloths) TOPICAL PRN (22:00)
[2017-11-06] VITALS (36 sets, daily range): BP systolic 117–169; BP diastolic 0–108; PULSE 90–122; RESP 16–41; TEMP 97.5–98.5; O2SAT 91–99
[2017-11-06] MEDS: RESP: ALBUTEROL 2.5 MG/IPRATROPIUM 0.5 MG NEB (SCH) NEB ×4 (03:25→19:44)
[2017-11-06] MEDS: CHLORHEXIDINE GLUCONATE 2 % 1 PACK (2 CLOTHS)(taper/protocol) TOPICAL SCH (03:38)
[2017-11-06] MEDS ORDERED: FLUMAZENIL 0.5 MG/5 ML VIAL IV PUSH PRN (03:45)
[2017-11-06] MEDS ORDERED: LORazepam 2 MG/ML VIAL IV PUSH PRN ×3 (03:45)
[2017-11-06] MEDS ORDERED: LORazepam 2 MG TAB PO PRN (03:45)
[2017-11-06] MEDS ORDERED: LORazepam 1 MG TAB PO PRN (03:45)
[2017-11-06] MEDS: LORazepam 2 MG/ML VIAL IV PUSH PRN ×5 (03:57→17:07)
[2017-11-06 04:54] LABS: AUTOMATED NEUTROPHIL # 5.2 TH/MM3 (1.8-7.7); BASOPHIL # 0.1 TH/MM3 (0-0.2); EOSINOPHIL % 0.1 % (0.0-4.0); HEMATOCRIT 48.3 % (39.0-51.0); HEMOGLOBIN 16.2 GM/DL (13.0-17.0); LYMPH % 5.2 % (9.0-44.0); LYMPHOCYTE # 0.3 TH/MM3 (1.0-4.8); MEAN CELL VOLUME 96.6 FL (80.0-100.0); MEAN CORPUSCULAR HEMOGLOBIN 32.5 PG (27.0-34.0); MEAN CORPUSCULAR HGB CONC 33.6 % (32.0-36.0); MEAN PLATELET VOLUME 8.1 FL (7.0-11.0); MONO % 1.6 % (0.0-8.0); MONOCYTE # 0.1 TH/MM3 (0-0.9); NEUT % 91.1 % (16.0-70.0); PLATELET COUNT 142 TH/MM3 (150-450); RED CELL DISTRIBUTION WIDTH 13.3 % (11.6-17.2); WHITE BLOOD COUNT 5.8 TH/MM3 (4.0-11.0)
[2017-11-06 05:07] LABS: BICARBONATE 23.1 MEQ/L (21.0-32.0)
[2017-11-06] MEDS ORDERED: POTASSIUM CHLORIDE 25 MEQ EFFERVESCENT TAB PO ONE (06:45)
[2017-11-06] MEDS: MULTIVITAMINS/MINERALS THERAPEUTIC TAB PO SCH (08:17)
[2017-11-06] MEDS: FOLIC ACID 1 MG TAB PO SCH (08:17)
[2017-11-06] MEDS: THIAMINE HCL 100 MG TAB PO SCH (08:17)
[2017-11-06] MEDS: ALBUTEROL SULFATE 90 MCG/ACT HFA 18 GM INHALER INH SCH ×5 (09:11→21:28)
[2017-11-06] MEDS: TIOTROPIUM BROMIDE 18 MCG INH INH SCH (09:11)
[2017-11-06] MEDS: SODIUM CHLORIDE 0.9% FLUSH 10 ML FLUSH IV FLUSH SCH ×2 (09:14→21:20)
[2017-11-06] MEDS ORDERED: PNEUMOCOCCAL POLYVALENT INJ 25 MCG/0.5 ML SYR IM ONE (10:00)
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
[2017-11-06] MEDS: guaiFENesin E.R. 600 MG TAB PO SCH ×2 (11:21→21:21)
[2017-11-06] MEDS: chlordiazePOXIDE 25 MG CAP PO SCH ×2 (11:21→17:08)
[2017-11-06] MEDS: methylPREDNISolone SOD SUCC 40 MG/1 ML VIAL IV PUSH SCH ×2 (11:26→17:26)
[2017-11-06] MEDS ORDERED: cloNIDine HCL 0.1 MG TAB PO PRN (12:00)
[2017-11-06 12:12] LABS: DIRECT BILIRUBIN ADULT 0.4 MG/DL (0.0-0.2)
[2017-11-06 12:14] LABS: INDIRECT BILIRUBIN 0.3 MG/DL (0.0-0.8); TOTAL BILIRUBIN ADULT 0.7 MG/DL (0.2-1.0)
[2017-11-06 12:15] LABS: TOTAL PROTEIN 8.5 GM/DL (6.4-8.2)
[2017-11-06] MEDS ORDERED: ARTIFICIAL TEARS OPTH SOLN 15 ML BTL EACH EYE PRN (13:00)
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
--- NOTE | 2017-11-06 13:40 | EKG ---
Date Performed: 11/05/2017 Time Performed: 17:21:19 PTAGE: 66 years EKG: SINUS TACHYCARDIA WITH OCCASIONAL SUPRAVENTRICULAR PREMATURE COMPLEXES INCOMPLETE RIGHT BUN DLE BRANCH BLOCK ABNORMAL RHYTHM ECG PREVIOUS TRACING : 06/12/2016 01.52 Rate has increased since prior tracing. Anterolateral ST de pression has improved somewhat. Continued clinical correlation is recommended. DOCTOR: Sky Le Interpretating Date/Time 11/06/2017 13:38:40
[2017-11-06] MEDS ORDERED: GLUCAGON 1 MG/ML VIAL OTHER PRN (13:45)
[2017-11-06] MEDS ORDERED: DEXTROSE 50% IN WATER 50 ML VIAL(D50) IV PUSH PRN (13:45)
[2017-11-06] MEDS: INSULIN ASPART SUPPLEMENTAL SCALE SQ SCH ×2 (17:00→22:39)
[2017-11-06] MEDS: ACETAMINOPHEN/HYDROcodone 325 MG/5 MG TAB PO PRN ×3 (17:46→18:51)
[2017-11-06] MEDS ORDERED: cefTRIAXone INJ 2,000 MG in SODIUM CHLORIDE 0.9% INJ 100 ML IV SCH (18:00)
--- NOTE | 2017-11-06 19:01 | MB ---
cc: Aislinn Tao MD, [place] W MD DATE: 11/06/2017 REASON FOR CONSULTATION: COPD exacerbation and pneumonia. HISTORY OF PRESENT ILLNESS: Mr. Lucero is a 66-year-old male who presents to the emergency room with increasing shortness of breath. He does have known history of chronic obstructive pulmonary disease. The shortness of breath has been present for 3-4 days, cough and expectoration of whitish grayish mucoid sputum. He denies history of fever, chills or hemoptysis. No anorexia or weight loss. PAST MEDICAL HISTORY: Chronic obstructive pulmonary disease, obstructive sleep apnea, noncompliant with CPAP therapy. PAST SURGICAL HISTORY: History of previous gastric varices for which he had had surgery, vasectomy, surgery on his left hand. SOCIAL HISTORY: The patient used to smoke heavily, stopped 10 years ago. Drinks 10 shots of vodka a day. Does not use drugs. FAMILY HISTORY: Noncontributory. REVIEW OF SYSTEMS: A 12 point review of systems as per HPI and past history, otherwise negative. PHYSICAL EXAMINATION: VITAL SIGNS: Pulse is 90, respiration 27, temperature 98 degrees Fahrenheit, O2 saturation 95% on 4 liters oxygen nasal cannula. HEENT: Unremarkable. Eyes without icterus. NECK: Without adenopathy or thyroid enlargement. Central trachea. CHEST: Few scattered rhonchi bilaterally. CARDIAC: PMI not appreciated. S1, S2 audible. No murmur. No rub. ABDOMEN: Lax, audible bowel sounds. EXTREMITIES: Trace edema. SKIN: Normal. No lymphadenopathy. LABORATORY DATA: White count 5.8, hemoglobin 16, hematocrit 48, platelets 142,000. Sodium 133, potassium 3.3, BUN 19, creatinine 1.0. IMAGING STUDIES: CT angiogram: No pulmonary emboli. Scattered infiltrates, left lung with peribronchial thickening, nonspecific left hilar node enlargement. IMPRESSION: 1. Chronic obstructive pulmonary disease exacerbation. 2. Left lung pneumonia. 3. Hypertension. 4. History of alcohol abuse. PLAN: The patient is admitted to the hospital. Oxygen therapy will be given. BiPAP therapy will be given as well while in the hospital. We will attempt to convince the patient to use CPAP post-discharge. Antibiotic therapy is instituted together with bronchodilator therapy. We will follow the patient's course along with you and, depending on progress, proceed further. I do thank you for asking me to partake in Mr. Lucero's care. Aislinn Tao MD WWW/ , 06:35 PM , 07:00 PM
[2017-11-06] MEDS ORDERED: AZITHROMYCIN INJ 500 MG in SODIUM CHLOR 0.9% 250 ML INJ 250 ML IV SCH (20:00)
[2017-11-06] MEDS: ENOXAPARIN SODIUM 40 MG/0.4 ML SYRINGE SQ SCH (21:21)
[2017-11-06] MEDS: TAMSULOSIN HCL 0.4 MG CAP PO SCH (21:21)
[2017-11-07] VITALS (15 sets, daily range): BP systolic 135–157; BP diastolic 73–94; PULSE 90–108; RESP 15–30; TEMP 97–98.6; O2SAT 90–94
[2017-11-07] MEDS: methylPREDNISolone SOD SUCC 40 MG/1 ML VIAL IV PUSH SCH ×3 (00:23→12:51)
[2017-11-07] MEDS: chlordiazePOXIDE 25 MG CAP PO SCH ×3 (00:23→12:52)
[2017-11-07] MEDS: CHLORHEXIDINE GLUCONATE 2 % 1 PACK (2 CLOTHS)(taper/protocol) TOPICAL SCH (04:00)
[2017-11-07] MEDS: ACETAMINOPHEN/HYDROcodone 325 MG/5 MG TAB PO PRN ×2 (04:35→10:47)
[2017-11-07 05:02] LABS: BICARBONATE 28.3 MEQ/L (21.0-32.0); CALCIUM 8.2 MG/DL (8.5-10.1); CREATININE 0.88 MG/DL (0.60-1.30)
[2017-11-07] MEDS: RESP: ALBUTEROL 2.5 MG/IPRATROPIUM 0.5 MG NEB (SCH) NEB ×2 (07:12→13:44)
[2017-11-07] MEDS: INSULIN ASPART SUPPLEMENTAL SCALE SQ SCH ×2 (08:00→12:51)
[2017-11-07] MEDS: TIOTROPIUM BROMIDE 18 MCG INH INH SCH (09:15)
[2017-11-07] MEDS: ALBUTEROL SULFATE 90 MCG/ACT HFA 18 GM INHALER INH SCH ×2 (09:15→12:52)
[2017-11-07] MEDS: FOLIC ACID 1 MG TAB PO SCH (09:17)
[2017-11-07] MEDS: TAMSULOSIN HCL 0.4 MG CAP PO SCH (09:17)
[2017-11-07] MEDS: guaiFENesin E.R. 600 MG TAB PO SCH (09:17)
[2017-11-07] MEDS: MULTIVITAMINS/MINERALS THERAPEUTIC TAB PO SCH (09:17)
[2017-11-07] MEDS: THIAMINE HCL 100 MG TAB PO SCH (09:17)
[2017-11-07] MEDS: SODIUM CHLORIDE 0.9% FLUSH 10 ML FLUSH IV FLUSH SCH (09:18)
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
[2017-11-07] MEDS ORDERED: VENTAER INH (10:53)
[2017-11-07] MEDS ORDERED: PRED20 PO (10:53)
[2017-11-07] MEDS ORDERED: SYMB160A INH (10:53)
[2017-11-07] MEDS ORDERED: SPIRCAP INH (10:53)
[2017-11-07] MEDS ORDERED: THIA100 PO (10:53)
[2017-11-07] MEDS ORDERED: AZIT250T3 PO (10:53)
[2017-11-07] MEDS ORDERED: IPRA17I INH (10:53)
== END 2017-11-07 15:12 | disposition home or self-care (01) ==
LOC: PHED 16:18 → INTOOBSV 19:37 → PHEDA 19:37 → PHICU 20:59
PROVIDERS: ADMIT Hospitalist; ATTEND Hospitalist
DX: J96.21 Acute and chronic respiratory failure with hypoxia (principal); J18.9 Pneumonia, unspecified organism; J44.1 Chronic obstructive pulmonary disease with (acute) exacerbation; Z85.828 Personal history of other malignant neoplasm of skin; I10 Essential (primary) hypertension; E66.01 Morbid (severe) obesity due to excess calories; J98.11 Atelectasis; Z87.891 Personal history of nicotine dependence; G47.33 Obstructive sleep apnea (adult) (pediatric); F10.10 Alcohol abuse, uncomplicated; Z91.19 Patient's noncompliance with other medical treatment and regimen; I45.10 Unspecified right bundle-branch block; Z23 Encounter for immunization
CPT/HCPCS: 36600; 71045; 71275; 73130; 80048; 80076; 82805; 82948; 83735; 83880; 84484; 85025; 85610; 87040; 87641; 90732; 93005; 94002; 94640; 94664; 96365; 96366; 96372; 96375; 96376; 99291; G0009; G0378; J0456; J0696; J1650; J1815; J2060; J2920; J2930; J7050; J7613; Q9967; 90471